=== PATIENT | male | born 1950 | race Caucasian/White ===

== ENCOUNTER → 2016-03-21 | Outpatient (CLI) | payer OTHER ==
[~2016-03-21] MED LIST: ALBU8.5H3 INH; ASPI-664 PO; BENA20TA48 PO; CALC-84 PO; DOCU-159 PO; FURO40TA4 PO; GABA300C PO; HC20CR25 TOP; HYDR-3498 PO; LANT3I SC; LORA10TA3 PO; METF500T PO; METO50TA16 PO; NIT4 SL; NOVO3I SC; OMEG1CAP55 PO; OMEP20CA16 PO; POTA20TA8 PO
--- NOTE | 2016-03-21 15:47 | RADRPT ---
PROCEDURE: Video-fluoroscopy swallowing study. CLINICAL INDICATION: Dysphagia. TECHNIQUE: Fluoroscopic guided video swallowing study was done in conjunction with the speech ther apist. The study was confined to the oral, pharyngeal, and cervical phases of the swallowing mechani sm. 2.4 minutes of fluoroscopy time was used. COMPARISON: No prior study is available for comparison. FINDINGS: There is no evidence of aspiration during the exam. IMPRESSION: 1. Normal study. No aspiration. 2. Please refer to the speech therapist's recommendations for future feedings. RPTAT: QQ .Steve Danielson MD, MD Date Time Electronically viewed and signed by .Steve Danielson MD, on 03/21/2016 15:47 .R/
== END | disposition home or self-care (01) ==
LOC: RAD 11:14
PROVIDERS: ATTEND Otolaryngology
DX: J39.2 Other diseases of pharynx (principal)
CPT/HCPCS: 74230; 92611

== ENCOUNTER 2016-12-11 04:14 | Emergency (ER) | payer OTHER ==
[~2016-12-11] VITALS: Ht 167.6 cm; Wt 115.9 kg
[~2016-12-11 04:14] MED LIST changes: +METO-319 PO; -METO50TA16 PO
[2016-12-11 04:25] VITALS: Ht 167.6 cm; Wt 115.9 kg
== END 2016-12-11 05:35 | disposition left against medical advice (07) ==
LOC: FTE 04:14
DX: Z53.21 Procedure and treatment not carried out due to patient leaving prior to being seen by health care provider (principal)

== ENCOUNTER → 2016-12-23 | Outpatient (CLI) | payer OTHER ==
[~2016-12-23] MED LIST changes: +NALOXONE (0.4 MG/ML) INJ ONE; +OPHTHALMIC IRRIG SOLUTION 120 ML ONE; +PHENYLephrine 10% 5 ML OPH ONE; +PROPARACAINE 0.5% 15 ML OPH ONE; +TROPICAMIDE 1% 3 ML OPH ONE
== END | disposition home or self-care (01) ==
LOC: RAD 12:44
PROVIDERS: ATTEND Ophthalmology
DX: H26.491 Other secondary cataract, right eye (principal)
CPT/HCPCS: 66821; Z7610; J2310

== ENCOUNTER 2017-07-08 09:04 | Emergency (ER) | END 2017-07-08 11:08 | disposition home or self-care (01) ==

== ENCOUNTER → 2017-07-08 | Outpatient (CLI) | END | disposition home or self-care (01) ==

== ENCOUNTER 2018-07-13 06:29 | Inpatient (IN) | payer OTHER ==
[~2018-07-13] VITALS: Ht 167.6 cm; Wt 109.0 kg
[~2018-07-13 06:29] MED LIST changes: -ALBU8.5H3 INH; +ALBU8.5H8 INH; -ASPI-664 PO; +ASPI-817 PO; +BENA20TA4 PO; -BENA20TA48 PO; +CALC-662 PO; -CALC-84 PO; -NALOXONE (0.4 MG/ML) INJ ONE; -NIT4 SL; +NITR0.4T39 SL; +OMEG-157 PO; -OMEG1CAP55 PO; -OPHTHALMIC IRRIG SOLUTION 120 ML ONE; -PHENYLephrine 10% 5 ML OPH ONE; -PROPARACAINE 0.5% 15 ML OPH ONE; -TROPICAMIDE 1% 3 ML OPH ONE
[2018-07-13] MEDS ORDERED: ASPIRIN 325 MG TAB PO STA (06:43)
[2018-07-13] MEDS ORDERED: ALBUTEROL 0.5% (NEB) 2.5 MG/0.5 ML AMP INH STA (06:43)
[2018-07-13] MEDS ORDERED: IPRATROPIUM (NEB) 0.5 MG/2.5 ML AMP INH STA (06:43)
--- NOTE | 2018-07-13 07:49 | ERD ---
ER Documentation Chief Complaint Chief Complaint sob and chest pain yesterday HPI This is 67-year-old male with a past medical history of coronary artery disease hypertension, CHF, insulin-dependent diabetes mellitus. The patient is on home oxygen. He states he utilizes roughly 2 L 24 hours a day. Over the past 24 hours the patient has had difficulty breathing with shortness of breath. He states his shortness of breath is at rest. He also developed chest pressure. He states the chest pressure lasted for roughly 1 hour. He took nitroglycerin and the chest pain completely resolved. This occurred yesterday roughly 12 tammy rs prior to arrival. When he awoke this morning the chest pain returned. He took another nitroglycerin and the chest pain completely resolved. The patient lives alone and a neighbor came over to check on him and phone 911 as the patient looked as though he was having a difficult time breathing. He denies any recent travel. He denies any swelling of his lower extremities. States his been compliant with all of his medications. ROS All systems reviewed and are negative except as per history of present illness. Medications Home Meds Active Scripts [place]-3/Dha/Epa/Fish Oil (FISH OIL EC 1,000 MG SOFTGEL) 1 Each Capsule.dr, 1000 MG PO BID for 30 Days Prov:PARDO,MIGUEL V. DRAMATIC DIRECTOR 11/19/15 Metformin Hcl (Glucophage) 500 Mg Tablet, 500 MG PO AC BREAKFAST DINNER for 30 Days, TAB Prov:PARDO,MIGUEL V. DRAMATIC DIRECTOR 11/19/15 Furosemide* (Furosemide*) 40 Mg Tablet, 40 MG PO DAILY@06 for 30 Days, TAB Prov:PARDO,MIGUEL V. DRAMATIC DIRECTOR 11/19/15 Insulin Aspart* (Novolog Insulin Pen*) 100 Unit/Ml Soln, 34 UNIT SC WITH MEALS for 30 Days Prov:PARDO,MIGUEL V. DRAMATIC DIRECTOR 11/19/15 Insulin Glargine* (Lantus*) 100 Unit/Ml Soln, 55 UNIT SC Q12 for 30 Days Prov:PARDO,MIGUEL V. DRAMATIC DIRECTOR 11/19/15 Metoprolol Succinate* (Toprol XL*) 50 Mg Tab.er.24h, 50 MG PO BID for 30 Days Prov:PARDO,MIGUEL V. DRAMATIC DIRECTOR 11/19/15 Aspirin* (Aspirin* EC) 81 Mg Tablet.dr, 81 MG PO DAILY for 30 Days, TAB Prov:PARDO,MIGUEL V. DRAMATIC DIRECTOR 11/19/15 Reported Medications Albuterol Sulfate* (Proair HFA*) 8.5 Gm Hfa.aer.ad, 2 PUFF INH Q4-6 HOURS PRN for WHEEZING AND SOB, INH 11/16/14 Potassium Chloride* (Klor-Con*) 10 Meq Tabsr, 10 MEQ PO DAILY W/ FOOD, TAB.SA 11/16/14 Omeprazole* (Omeprazole*) 20 Mg Capsule.dr, 20 MG PO DAILY, CAP 11/16/14 Hydrocodone Bit-Acetaminophen* ([place]*) 5-325 Mg Tab, 1 TAB PO Q6 PRN for PAIN, TAB 11/16/14 Nitroglycerin* (Nitrostat*) 0.4 Mg Tab.subl, 0.4 MG SL Q5MIN PRN for CHEST PAIN, BOTTLE 11/16/14 Gabapentin* (Neurontin*) 300 Mg Capsule, 300 MG PO TID, CAP 11/16/14 Loratadine* (Loratadine*) 10 Mg Tablet, 10 MG PO DAILY, TAB 11/16/14 Hydrocortisone* Topical (Hydrocortisone* Topical) 2.5%-20 Gm Cream..g., 1 APPLIC TOP BID, TUB 11/16/14 Docusate Sodium* (Docusate Sodium*) 100 Mg Capsule, 200 MG PO QHS PRN for CONSTIPATION, CAP 11/16/14 Calcium Carbonate-Vitamin D3 (Calcium 500 + D Tablet) 1 Each Tablet, 1 TAB PO BID, TAB 11/16/14 Benazepril Hcl* (Benazepril Hcl*) 20 Mg Tablet, 20 MG PO DAILY, TAB 11/16/14 Allergies Allergies: Coded Allergies: peanut (Verified Allergy, Intermediate, TIGHTNESS IN THROAT, SOB, 07/08/17) PMhx/Soc History of Surgery: Yes (RIGHT KNEE REPLACEMENT, EYE SX, ) Anesthesia Reaction: No Hx Neurological Disorder: Yes Hx Respiratory Disorders: Yes (COPD) Hx Cardiac Disorders: Yes (CHF, HTN, AFIB VA WITH STENT PLACEMENT ) Hx Psychiatric Problems: No Hx Miscellaneous Medical Probl: Yes (Diabetic neuropathy, SLEEP APNEA) Hx Alcohol Use: Yes Hx Substance Use: No Hx Tobacco Use: No Smoking Status: Never smoker Physical Exam Vitals Vital Signs Date Temp Pulse Resp B/P (MAP) Pulse Ox O2 O2 Flow FiO2 Time Delivery Rate 07/13/18 96 22 160/83 100 Nasal 4.0 08:13 (108) Cannula 07/13/18 86 22 96 Nasal 2.0 07:27 Cannula 07/13/18 Nasal 4 07:05 Cannula 07/13/18 Nasal 4.0 06:46 Cannula 07/13/18 98.0 95 22 181/95 100 06:35 (123) Physical Exam Constitutional:Well-developed. Well-nourished. HEENT:Normocephalic. Atraumatic.Pupils were equal round reactive to light. Moist mucous membranes.No tonsillar exudates. Neck: No nuchal rigidity. No lymphadenopathy. No posterior cervical spine tenderness or step-offs. Respiratory: Not using accessory muscles of respiration.Decreased breath sounds bilaterally. Patient unable to speak more than 2 words at a time before becoming short of breath Cardiovascular: Regular rate regular rhythm.No murmurs. No rubs were appreciated.S1, S2 normal. Distal pulses are palpable 2+ bilaterally. GI: Abdomen was obese so exam is limited due to body habitus. Nontender. Non Distended. No pulsatile abdominal masses or bruits. No rebound. No guarding. Bowel sounds were present and normal. Muscle skeletal: Full range of motion of both the upper and lower extremities bilaterally.Normal muscle tone.No assymetrical calf tenderness or swelling. Skin: No petechia, no purpura. No lesions on the palms or the soles of the feet. No maculopapular rash. NEURO: Patient was alert, awake, orientated x3.No facial droop. Gait not observed as patient was in respiratory distress and stated he could not am bulate. No focal neurological deficits. Result Diagram: 07/13/1870607/13/18706 Results 24 hrs Laboratory Tests Test 07/13/18 07:07 07/13/18 07:45 White Blood Count 4.9 10^3/ul Red Blood Count 5.10 10^6/ul Hemoglobin 13.8 g/dl Hematocrit 42.1 % Mean Corpuscular Volume 82.5 fl Mean Corpuscular Hemoglobin 27.1 pg Mean Corpuscular Hemoglobin Concent 32.8 g/dl Red Cell Distribution Width 14.3 % Platelet Count 125 10^3/UL Mean Platelet Volume 9.4 fl Immature Granulocytes % 0.200 % Neutrophils % 63.5 % Lymphocytes % 16.8 % Monocytes % 7.0 % Eosinophils % 11.9 % Basophils % 0.6 % Nucleated Red Blood Cells % 0.0 /100WBC Immature Granulocytes # 0.010 10^3/ul Neutrophils # 3.1 10^3/ul Lymphocytes # 0.8 10^3/ul Monocytes # 0.3 10^3/ul Eosinophils # 0.6 10^3/ul Basophils # 0.0 10^3/ul Nucleated Red Blood Cells # 0.0 10^3/ul Sodium Level 134 mmol/L Potassium Level 5.4 mmol/L Chloride Level 100 mmol/L Carbon Dioxide Level 28 mmol/L Anion Gap 6 Blood Urea Nitrogen 16 mg/dl Creatinine 0.75 mg/dl Est Glomerular Filtrat Rate mL/min > 60 mL/min Glucose Level 388 mg/dl Calcium Level 8.8 mg/dl Total Bilirubin 0.7 mg/dl Direct Bilirubin 0.00 mg/dl Indirect Bilirubin 0.7 mg/dl Aspartate Amino Transf (AST/SGOT) 44 IU/L Alanine Aminotransferase (ALT/SGPT) 26 IU/L Alkaline Phosphatase 86 IU/L Creatine Kinase 79 IU/L Creatine Kinase Index 2.6 Creatinine Kinase MB (Mass) 2.03 ng/ml Troponin I 0.023 ng/ml B-Type Natriuretic Peptide 266 PG/ML Total Protein 7.0 g/dl Albumin 3.5 g/dl Globulin 3.50 g/dl Albumin/Globulin Ratio 1.00 Prothrombin Time 12.3 Sec Prothrombin Time Ratio 1.0 INR International Normalized Ratio 0.90 Activated Partial Thromboplast Time 25.8 Sec Current Medications Medications Dose Sig/Steve Start Time Status Last (Trade) Ordered Route PRN Stop Time Admin Dose Reason Admin Aspirin 325 mg ONCE STAT 07/13/18 DC 07/13/18 (Aspirin) PO 06:43 07:20 07/13/18 06:53 Albuterol 10 mg ONCE STAT 07/13/18 DC 07/13/18 (Proventil INH 06:43 07:27 0.5% (Neb)) 07/13/18 06:53 Ipratropium 1 mg ONCE STAT 07/13/18 DC 07/13/18 [place] INH 06:43 07:27 (Atrovent 07/13/18 06:53 0.02% (Neb)) Furosemide 80 mg ONCE ONCE 07/13/18 DC 07/13/18 (Lasix) IV 08:00 08:13 07/13/18 08:01 Ondansetron 4 mg ER BRIDGE 07/13/18 HCl (Zofran PRN IV 08:00 Inj) NAUSEA/VOMITI 07/14/18 07:59 NG 650 mg ER BRIDGE 07/13/18 Acetaminophen PRN PO 08:00 (Tylenol .MILD PAIN 07/14/18 07:59 Tab) 1-3 OR TEMP Procedures/MDM The patient presented to the emergency department with shortness of breath. My differential diagnosis included but was not limited to upper airway obstruction, CHF, pulmonary embolism, cardiac ischemia, pneumonia, pneumothorax, anemia, drug overdose, pulmonary edema, COPD or asthma. The patient was admitted placed on a information resource consultant continuous pulse oximetry and IV access was established by nursing staff. The patient received 125 mg of Solu-Medrol as the patient stated he also has a history of COPD and started on continuous nebulizer treatment of albuterol and Atrovent. Patient also complained of chest pain. However when the patient arrived his chest pain had resolved as he had Avel taken nitroglycerin. He was given aspirin in the emergency department. I obtained an EKG and there was no evidence of ST segment elevation. 12 Lead EKG tracing ordered and reviewed by myself showed: Normal sinus rhythm of 93 bpm and no arrhythmia. OR interval normal. QRS duration normal. No ST segment elevation No ST segment depression. No changes consistent with acute ischemia. I obtained a 1 view chest radiograph that was reviewed by myself the patient had cardiomegaly. There is no infiltrates. There is no evidence of pulmonary vascular congestion. However, the patient was hypertensive and does have congestive heart failure. He received 80 mg of Lasix intravenously. The patient's arterial blood gas showed CO2 narcosis the patient's PCO2 was 55.3 mmHg oxygen concentration was 181.3 and pH was 7.3. Repeat EKG was obtained as the patient was initially complaining of chest pain. The second EKG was taken at 8:15 AM. 12 Lead EKG tracing ordered and reviewed by myself showed: Normal sinus rhythm of 96 bpm and no arrhythmia. OR interval normal. QRS duration normal. No ST segment elevation No ST segment depression. No changes consistent with acute ischemia. Critical Care: Time: 80 minutes Treatments/Evaluations: Close monitoring and treatment of unstable vital signs, cardiorespiratory, and neurologic status, while maintaining tight balance of fluid, respiratory, and cardiac interventions. Time does not include performing any of the above billable procedures. Departure Diagnosis: Primary Impression: CHF exacerbation Heart failure type: unspecified Qualified Codes: I50.9 - Heart failure, unspecified Additional Impressions: COPD exacerbation Chest pain Chest pain type: unspecified Qualified Codes: R07.9 - Chest pain, unspecified Condition: Serious JOHN JARAMILLO MD July 13, 2018 07:39
[2018-07-13] MEDS ORDERED: ACETAMINOPHEN 325 MG TAB PO PRN ×2 (08:00→14:30)
[2018-07-13] MEDS ORDERED: ONDANSETRON 4 MG INJ IV PRN ×2 (08:00→14:30)
[2018-07-13] MEDS ORDERED: FUROSEMIDE 40 MG INJ IV ONE (08:00)
[2018-07-13] MEDS ORDERED: ZOLP10TA5 PO (08:28)
[2018-07-13] MEDS ORDERED: ALBU18HF INHALATION (08:29)
[2018-07-13] MEDS ORDERED: AMLO5TAB4 PO (08:29)
[2018-07-13] MEDS ORDERED: LYRI100 PO (08:29)
[2018-07-13] MEDS ORDERED: OMEP40CA6 PO (08:30)
[2018-07-13] MEDS ORDERED: FLUT1BLS INHALATION (08:30)
[2018-07-13] MEDS ORDERED: RSV10T PO (08:30)
[2018-07-13] MEDS ORDERED: OMEG1CAP2 PO (08:30)
[2018-07-13] MEDS ORDERED: DAPS25TA PO (08:31)
[2018-07-13] MEDS ORDERED: CETI10TA19 PO (08:32)
[2018-07-13] MEDS ORDERED: METF100010 PO (08:33)
[2018-07-13] MEDS ORDERED: CARV6.2579 PO (08:33)
[2018-07-13] MEDS ORDERED: NITR0.4T39 SL (08:33)
[2018-07-13] MEDS ORDERED: OLME20TA20 PO (08:34)
[2018-07-13] MEDS ORDERED: EZET10TA31 PO (08:34)
[2018-07-13] MEDS ORDERED: FURO40SO PO (08:35)
[2018-07-13] MEDS ORDERED: INSU100I33 SC (08:40)
[2018-07-13] MEDS ORDERED: NOVO3I SC (08:41)
[2018-07-13] MEDS ORDERED: EXEN2PEN SQ (08:42)
[2018-07-13] MEDS ORDERED: ERGO500013 PO (08:43)
[2018-07-13 13:07] VITALS: PULSE 78
--- NOTE | 2018-07-13 14:08 | HP ---
Date/Time of Note Date/Time of Note DATE: 07/13/18 TIME: 14:01 Assessment/Plan VTE Prophylaxis Pharmacological prophylaxis: LMWH Lines/Catheters IV Catheter Type (from [facility]): [place] [facility] Assessment/Plan Hospital Course 67-year-old male with known COPD on home oxygen, known coronary artery disease status post LA and known cardiomyopathy who presents with worsening shortness of breath and chest pressure admitted and managed as follows: 1. Chest pain rule out ACS 2. Known coronary artery disease status post PCI 3. CHF exacerbation, acute on chronic, systolic 4. Acute on chronic renal respiratory insufficiency 5. Known COPD on home oxygen 6. Morbid obesity 7. Dyslipidemia with hypertriglyceridemia 8. Diabetes mellitus with poor home control PLAN: -Admit to telemetry, complete ACS rule out, commence gentle diuresis, cardiology consultation with Dr. Up. -Resume home hypoglycemics with insulin. Patient on very high dosing. Will resume on the dosing he was on on his previous hospitalization and uptitrate as indicated. Also obtain hemoglobin A1c -Continue all other home medications -Provide supportive care and supplemental oxygen as needed -Further interventions per clinical course Result Diagram: 07/13/18 0707 07/13/18 0707 Results 24hrs Laboratory Tests Test 07/13/18 06:58 07/13/18 07:07 07/13/18 07:37 07/13/18 07:45 Urine Color STRAW Urine Clarity CLEAR Urine pH 7.0 Urine Specific 1.010 [place] Urine Ketones NEGATIVE Urine Nitrite NEGATIVE Urine Bilirubin NEGATIVE Urine NEGATIVE Urobilinogen Urine Leukocyte NEGATIVE Esterase Urine Microscopic 1 RBC Urine Microscopic 0 WBC Urine Hemoglobin 1+ H Urine Glucose 3+ H Urine Total 2+ H Protein White Blood Count 4.9 Red Blood Count 5.10 Hemoglobin 13.8 L Hematocrit 42.1 Mean Corpuscular 82.5 Volume Mean Corpuscular 27.1 L Hemoglobin Mean Corpuscular 32.8 Hemoglobin Concen t Red Cell 14.3 Distribution Width Platelet Count 125 L Mean Platelet 9.4 # Volume Immature 0.200 Granulocytes % Neutrophils % 63.5 Lymphocytes % 16.8 Monocytes % 7.0 Eosinophils % 11.9 H Basophils % 0.6 Nucleated Red 0.0 Blood Cells % Immature 0.010 Granulocytes # Neutrophils # 3.1 Lymphocytes # 0.8 Monocytes # 0.3 Eosinophils # 0.6 H Basophils # 0.0 Nucleated Red 0.0 Blood Cells # Sodium Level 134 L Potassium Level 5.4 H Chloride Level 100 Carbon Dioxide 28 Level Anion Gap 6 Blood Urea 16 Nitrogen Creatinine 0.75 Est Glomerular > 60 Filtrat Rate mL/min Glucose Level 388 H Calcium Level 8.8 Total Bilirubin 0.7 Direct Bilirubin 0.00 Indirect 0.7 Bilirubin Aspartate Amino 44 Transf (AST/SGOT) Alanine 26 Aminotransferase (ALT/SGPT) Alkaline 86 Phosphatase Creatine Kinase 79 Creatine Kinase 2.6 Index Creatinine Kinase 2.03 MB (Mass) Troponin I 0.023 B-Type 266 H Natriuretic Peptide Total Protein 7.0 Albumin 3.5 Globulin 3.50 H Albumin/Globulin 1.00 Ratio Blood Gas Blood arterial Specimen Source Arterial Blood 07/13/2018 8:05:0 Date Drawn 0 AM Arterial Blood pH 7.332 L (Temp corrected) Arterial Blood 55.3 H pCO2 (Temp correct) Arterial Blood 181.3 H pO2 (Temp corrected) Arterial Blood 28.6 H HCO3 Arterial Blood 1.5 Base Excess Arterial Blood 99.0 H Oxygen Saturation Andrei Test ACCEPTAB Arterial Blood Right Radial Gas Puncture Site Arterial 1.1 Blood Carboxyhemo globin Arterial Blood 0.3 Methemoglobin Blood Gas A-a O2 134.8 H Differential Oxyhemoglobin 97.6 Percent Blood Gas 37.0 Temperature Blood Gas TX MASK 8 Modality FiO2 53.0 Blood Gas RT Notified Whom Blood Gas 07/13/2018 8:15:3 Notified Time 9 AM Prothrombin Time 12.3 Prothrombin Time 1.0 Ratio INR International 0.90 Normalized Ratio Activated 25.8 Partial Thrombopl ast Time Test 07/13/18 10:20 07/13/18 11:41 Bedside Glucose 359 H Creatine Kinase 64 Creatine Kinase 3.1 Index Creatinine Kinase 1.99 MB (Mass) Troponin I 0.022 HPI/ROS Admit Date/Time Admit Date/Time July 13, 2018 at 07:59 Hx of Present Illness This is 67-year-old male with a past medical history of coronary artery disease hypertension, CHF, insulin-dependent diabetes mellitus. The patient is on home oxygen. He states he utilizes roughly 2 L 24 hours a day. Over the past 24 hours the patient has had difficulty breathing with shortness of breath. He states his shortness of breath is at rest. He also developed chest pressure. He states the chest pressure lasted for roughly 1 hour. He took nitroglycerin and the chest pain completely resolved. This occurred yesterday roughly 12 hours prior to arrival. When he awoke this morning the chest pain returned. He took another nitroglycerin and the chest pain completely resolved. The patient lives alone and a neighbor came over to check on him and phone 911 as the patient looked as though he was having a difficult time breathing. He denies any recent travel. He denies any swelling of his lower extremities. States his been compliant with all of his medications. ROS 12 point review if systems was done and pertinent findings are as noted. PMH/Family/Social Past Medical History coronary artery disease hypertension CHF insulin-dependent diabetes mellitus. chronic resp failure on home o2 CAD s/p PCI chronic CM ef 30% COPD morbid obesity dyslipidemia Medications Current Medications Ondansetron HCl (Zofran Inj) 4 mg ER BRIDGE PRN IV NAUSEA/VOMITING; Start 07/13/18 at 08:00; Stop 07/14/18 at 07:59 Acetaminophen (Tylenol Tab) 650 mg ER BRIDGE PRN PO .MILD PAIN 1-3 OR TEMP; Start 07/13/18 at 08:00; Stop 07/14/18 at 07:59 Coded Allergies: peanut (Verified Allergy, Intermediate, TIGHTNESS IN THROAT, SOB, 07/13/18) Past Surgical History R knee replacement eye sx . Family History Significant Family History: no pertinent family hx Social History Alcohol Use: none Smoking Status: Never smoker Drug Use: none Exam/Review of Systems Vital Signs Vitals Vital Signs Date Temp Pulse Resp B/P (MAP) Pulse Ox O2 O2 Flow FiO2 Time Delivery Rate 07/13/18 78 13:07 07/13/18 22 136/74 98 Nasal 2.0 12:38 (94) Cannula 07/13/18 98.0 06:35 Exam Exam General: A&O x3, answering questions appropriately,obese, anxious HEENT: NC/ AT. PERRL. EOM intact Neck: supple CVS: S1, S2, RRR. no murmurs. no pain on chest wall palpation Lungs: diminished ++ Abd: soft, nontender, +BS Ext: moving all extremities, francisco javier le edema skin: no rashes CB MILLS July 13, 2018 14:08
[2018-07-13] MEDS ORDERED: LORAZEPAM 0.5 MG TAB PO PRN (14:30)
[2018-07-13] MEDS ORDERED: DEXTROSE 50% 50 ML SYRINGE IV PRN ×2 (14:30)
[2018-07-13] MEDS ORDERED: GLUCAGON 1 MG INJ IM PRN (14:30)
[2018-07-13] MEDS ORDERED: ZOLPIDEM 5 MG TAB PO PRN (14:30)
[2018-07-13] MEDS ORDERED: GLUCOSE GEL 15 GRAM TUBE PO PRN ×2 (14:30)
[2018-07-13] MEDS: DOCUSATE SODIUM 100 MG CAP PO SCH ×2 (14:30→21:15)
[2018-07-13] MEDS ORDERED: GLUCOSE GEL 15 GRAM TUBE BUCCAL PRN (14:30)
[2018-07-13] MEDS: INSULIN ASPART [NOVOLOG] 3 ML PEN SC SCH ×4 (14:43→21:21)
--- NOTE | 2018-07-13 14:52 | CONS ---
DATE OF ADMISSION: 07/13/2018 DATE OF CONSULTATION: 07/13/2018 TYPE OF CONSULTATION: Cardiology. REASON FOR CONSULTATION: Congestive heart failure exacerbation and chest pain, assess for acute coronary syndrome. REQUESTING PHYSICIAN: Cb Mills MD, from the hospitalist service. HISTORY OF PRESENT ILLNESS: Mr. Torres is a 67-year-old male with history of hypertension, dyslipidemia, coronary artery disease, status post PCI alone more than 30 years ago per patient at [facility], cardiomyopathy with decreased left ventricular ejection fraction, last EF only approximately 35% by stress test with no ischemia done in 2016 and echo 50% during that same year, prior tobacco intake, quit times greater than 20 years, COPD, diabetes mellitus, who states he initially woke up and noticed numbness in the right side of his face and drooling from his mouth and called paramedics. Upon arrival of paramedics, he states he is more concerned about having shortness of breath and thought that he was in suffering from more shortness of breath and he additionally told them he had some intermittent chest pain and subsequently was brought here to the emergency department. Upon arrival, temperature of 98, blood pressure 181/95, pulse 95, respiratory rate 22, satting 100%. The patient's labs showed white blood cell count 4.9, hemoglobin 13.8, platelet count of 125, sodium 134, potassium 5.4, creatinine 0.7, BUN 16, AST 44, ALT 26, BNP of 266, troponin negative, albumin 3.5, glucose of 388, INR of 9.9, UA negative. ABG with pH of 7.332, a PaO2 of 181 for O2 sat 99% and pCO2 of 55. The patient underwent a chest x-ray revealing mild central venous congestion with tiny right pleural effusion. The patient's electrocardiogram revealed sinus rhythm at rate of 93 with normal axis, normal intervals, nonspecific ST-T abnormalities, The patient thus far has been treated with Lasix 80 mg IV x1, aspirin 325 mg, bronchodilators and now is admitted to the floor. The patient states that since he is in the floor, he has been having more palpitations and chest pain and denies true chest pain. PAST MEDICAL HISTORY: As above in HPI. MEDICATIONS CURRENTLY IN HOSPITAL: 1. Aspirin 81 mg daily. 2. Norvasc 5 mg daily. 3. Breo Ellipta daily. 4. Pepcid 20 mg q.12. 5. Carvedilol 6.25 mg p.o. b.i.d. 6. Dapsone 100 mg b.i.d. 7. Zetia 10 mg at bedtime. 8. Lantus. 9. Lyrica. 10. Insulin sliding scale. 11. Tylenol p.r.n. 12. [place] p.r.n. 13. Ambien p.r.n. 14. Zofran p.r.n. ALLERGIES: PEANUTS. SOCIAL HISTORY: Remote tobacco. No EtOH or illicit drug use. FAMILY HISTORY: No history of sudden cardiac or early CAD. REVIEW OF SYSTEMS: As above in HPI. CONSTITUTIONAL: No fevers, chills. PULMONARY: Shortness of breath. CARDIOVASCULAR: No current chest pain, palpitations. History of cardiomyopathy with decreased left ventricular ejection fraction. GASTROINTESTINAL: No vomiting or nausea. MUSCULOSKELETAL: Degenerative joint disease. ENDOCRINE: Diabetes mellitus. PSYCHIATRIC: No documented psych history. PHYSICAL EXAMINATION: VITAL SIGNS: Temperature of 98, blood pressure most recently 136/74, pulse 80, respiratory rate 22, satting 98% on 2 liters. GENERAL: The patient is alert, awake, complaining of shortness of breath. NECK: JVP is approximately 9 cm water. CHEST: Decreased breath sounds at bases bilaterally and mild expiratory wheezing. HEART: Regular rate and rhythm. Normal S1, increased S2, I/ systolic murmur, mild lateral displacement of PMI. ABDOMEN: Positive bowel sounds, soft. EXTREMITIES: No significant pitting edema. Difficult to palpate distal pulses bilateral posterior tibial, dorsalis pedis. LABORATORY DATA: As above in HPI. No further labs for my review at this time. IMAGING STUDIES: As above in HPI. No further imaging studies for my review at this time. ELECTROCARDIOGRAM: As above in HPI. No further electrocardiograms for my review at this time. IMPRESSION: 1. Congestive heart failure exacerbation by previous stress and echo be systolic and acute on chronic. 2. Hypertension. 3. Dyslipidemia. 4. Abnormal electrocardiogram, assess for acute coronary syndrome. 5. Remote tobacco. 6. Chronic obstructive pulmonary disease. 7. Diabetes mellitus. 8. Hyperkalemia. 9. Mildly increased BNP. RECOMMENDATIONS: 1. At this time, we would maintain the patient on telemetry monitoring to follow rhythm and rate control closely. 2. We would complete the patient's rule out of myocardial infarction to ensure the patient's possible chest pain which was described and palpitations are not due to acute coronary syndrome, acute myocardial infarction but additionally to make sure the patient's EKG abnormalities are chronic in nature and not due to recent acute coronary syndrome. 3. We would place the patient on Lasix diuresis as you have done and continue the patient's aspirin at this time. 4. Additionally continue the patient's beta janice and we will change to beta 1 selective beta janice does not provoked any bronchospasm leading to worsening shortness of breath as would happen with carvedilol. 5. We will continue the patient's Norvasc for now and given the patient's decreased EF by history, we will reassess with 2D echo and we would place the patient on ESTUARDO inhibitor afterload reduction. Additionally, we will continue bronchodilator therapy. Thank you for allowing me to take part in the care of this patient. I will continue to follow him along very closely with you with further recommendations to be made as the patient progresses through his inpatient hospital clinical course. Dictated By: HERRERA FOWLER/ELMER Conf#: [id number] DID#: [id number] CC: CB MILLS MD;*EndCC* MTDD
[2018-07-13 15:37] VITALS: BP 132/62; PULSE 84; RESP 20
[2018-07-13 15:56] VITALS: Ht 167.6 cm; Wt 109.0 kg
[2018-07-13 16:00] VITALS: PULSE 86
[2018-07-13] MEDS: PREGABALIN 100 MG CAP PO SCH ×2 (16:10→21:36)
[2018-07-13] MEDS: ACCU-CHEK XX SCH ×2 (17:25→21:00)
[2018-07-13] MEDS: FUROSEMIDE 40 MG INJ IV SCH (18:00)
[2018-07-13 19:29] VITALS: BP 130/60; PULSE 73; RESP 20
[2018-07-13 20:00] VITALS: PULSE 79
[2018-07-13] MEDS ORDERED: INSULIN GLARGINE [LANtus] 3 ML PEN SC SCH (21:00)
[2018-07-13] MEDS: DAPSONE 25 MG TABLET PO SCH (21:15)
[2018-07-13] MEDS: ATORVASTATIN 40 MG TAB PO SCH (21:16)
[2018-07-13] MEDS: EZETIMIBE 10 MG TAB PO SCH (21:16)
[2018-07-13] MEDS: FAMOTIDINE 20 MG TAB PO SCH (21:17)
[2018-07-13] MEDS: FISH OIL 1,000 MG CAP PO SCH (21:17)
[2018-07-13] MEDS: INSULIN GLARGINE [LANTus] (100 UNITS/ML) SYG SC SCH (21:21)
[2018-07-13 23:45] VITALS: BP 139/77; PULSE 70; RESP 22
[2018-07-14] VITALS (10 sets, daily range): BP systolic 98–151; BP diastolic 55–77; PULSE 65–73; RESP 16–20
[2018-07-14] MEDS: ACCU-CHEK XX SCH ×4 (02:00→21:00)
[2018-07-14] MEDS: HYDROCODONE/APAP (5/325) TAB PO PRN ×3 (03:40→20:45)
[2018-07-14] MEDS: PANTOPRAZOLE (EC) 40 MG TAB PO SCH (06:19)
[2018-07-14] MEDS: FUROSEMIDE 40 MG INJ IV SCH (06:20)
[2018-07-14] MEDS: FLUTICASONE/VILANTEROL 200-25 INH DEVICE INH SCH (08:07)
[2018-07-14] MEDS: DOCUSATE SODIUM 100 MG CAP PO SCH ×2 (08:07→20:41)
[2018-07-14] MEDS: FISH OIL 1,000 MG CAP PO SCH ×2 (08:07→20:42)
[2018-07-14] MEDS: ASPIRIN 81 MG TAB PO SCH (08:08)
[2018-07-14] MEDS: FAMOTIDINE 20 MG TAB PO SCH ×2 (08:08→20:43)
[2018-07-14] MEDS: PREGABALIN 100 MG CAP PO SCH ×3 (08:08→20:42)
[2018-07-14] MEDS: DAPSONE 25 MG TABLET PO SCH ×2 (08:09→20:43)
[2018-07-14] MEDS: AMLODIPINE 5 MG TAB PO SCH (08:09)
[2018-07-14] MEDS: LOSARTAN 50 MG TAB PO SCH (08:10)
[2018-07-14] MEDS: BENAZEPRIL 10 MG TAB PO SCH (08:10)
[2018-07-14] MEDS: INSULIN ASPART [NOVOLOG] 3 ML PEN SC SCH ×7 (08:19→21:00)
[2018-07-14] MEDS: ENOXAPARIN 40 MG/0.4 ML SYG SC SCH (08:24)
--- NOTE | 2018-07-14 09:38 | CONS ---
Consult Date/Type/Reason Admit Date/Time July 13, 2018 at 07:59 Initial Consult Date Date/Time of Note DATE: 07/14/18 TIME: 09:36 Subjective No acute events - pt feels better toady - denies CP now. ROS: No fever, no chills, no nausea, no vomiting, no diarrhea/constipation No recent weight changes No chest pain, no PND, no orthopnea No dizziness, blurred vision No thirst, no heat or cold intolerance Objective Vitals Vital Signs Date Temp Pulse Resp B/P (MAP) Pulse Ox O2 O2 Flow FiO2 Time Delivery Rate 07/14/18 67 08:01 07/14/18 97.9 16 133/77 97 07:45 (95) 07/14/18 Room Air 04:41 07/13/18 2.0 12:38 Intake and Output 07/13/18 07/13/18 07/14/18 1515:00 23:00 07:00 IntakeIntake Total 720 ml 650 ml OutputOutput Total 1000 ml BalanceBalance 720 ml -350 ml Exam General: WN/WD/NAD, AOx 3 HEENT: Unicetric/atraumatic/EOMI (follows commands) NECK: JVD elevated, no thyromegaly Lymph: no lymphadenopathy HEART: regular with no S3, II/ systolic murmur at apex LUNGS: Coarse sounds ABD: soft, NT, ND, +BS : Intact Neuro: non focal SKIN: chronic changes EXT: trace edema Results/Medications Result Diagram: 07/14/18 0607 07/14/18 0607 Results 24 hrs Laboratory Tests Test 07/13/18 10:20 07/13/18 11:41 07/13/18 14:23 07/13/18 14:32 Bedside Glucose 359 H 318 H Creatine Kinase 64 Creatine Kinase 3.1 Index Creatinine Kinase MB 1.99 (Mass) Troponin I 0.022 Sodium Level 134 L Potassium Level 4.5 Chloride Level 95 L Carbon Dioxide Level 31 Anion Gap 8 Blood Urea Nitrogen 16 Creatinine 0.83 Est Glomerular > 60 Filtrat Rate mL/min Glucose Level 366 H Calcium Level 9.2 Test 07/13/18 17:15 07/13/18 17:59 07/13/18 21:14 07/14/18 03:32 Bedside Glucose 347 H 253 H 291 H Creatine Kinase 64 Creatine Kinase 3.3 Index Creatinine Kinase MB 2.09 (Mass) Troponin I 0.022 Test 07/14/18 06:07 07/14/18 07:38 White Blood Count 6.6 # Red Blood Count 5.11 Hemoglobin 13.8 L Hematocrit 41.6 L Mean Corpuscular 81.4 L Volume Mean Corpuscular 27.0 L Hemoglobin Mean Corpuscular 33.2 Hemoglobin Concent Red Cell 14.1 Distribution Width Platelet Count 163 # Mean Platelet Volume 9.5 Immature 0.300 Granulocytes % Neutrophils % 56.3 Lymphocytes % 19.5 Monocytes % 9.1 Eosinophils % 14.0 H Basophils % 0.8 Nucleated Red Blood 0.0 Cells % Immature 0.020 Granulocytes # Neutrophils # 3.7 Lymphocytes # 1.3 Monocytes # 0.6 Eosinophils # 0.9 H Basophils # 0.1 Nucleated Red Blood 0.0 Cells # Sodium Level 131 L Potassium Level 4.2 Chloride Level 94 L Carbon Dioxide Level 33 H Anion Gap 4 L Blood Urea Nitrogen 23 H Creatinine 1.08 Est Glomerular > 60 Filtrat Rate mL/min Glucose Level 315 H Hemoglobin A1c 11.0 H Calcium Level 8.7 Phosphorus Level 4.9 Magnesium Level 1.7 Iron Level 89 Total Iron Binding 314 Capacity Percent Iron 28 Saturation Triglycerides Level 162 H Cholesterol Level 137 LDL Cholesterol, 69 Calculated HDL Cholesterol 36 Cholesterol/HDL 3.8 Ratio Bedside Glucose 303 H Home Meds Reported Medications Ergocalciferol (Vitamin D2) (VITAMIN D2) 50,000 Unit Capsule, 37759 UNIT PO ONCE A WEEK, CAP PT NOT SURE WHICH DAY 07/13/18 Exenatide Microspheres (Bydureon Pen) 2 Mg/0.65 Ml Pen.injctr, 2 MG SQ Q7D, EACH PT NOT SURE WHICH DAY 07/13/18 Insulin Aspart* (Novolog Insulin Pen*) 100 Unit/Ml Soln, 40 UNIT SC WITH MEALS, EA 07/13/18 Insulin Glargine,Hum.rec.anlog (Basaglar Kwikpen U-100) 100 Unit/1 Ml Insuln.pen, 60 UNIT SC QHS, EA 07/13/18 Furosemide* (Furosemide*) 40 Mg/5 Ml Solution, 40 MG PO DAILY, #150 ML 07/13/18 Ezetimibe* (Zetia*) 10 Mg Tablet, 10 MG PO HS, TAB 07/13/18 Olmesartan Medoxomil (Benicar) 20 Mg Tablet, 20 MG PO DAILY, #30 TAB 07/13/18 Metformin Hcl* (Metformin Hcl*) 1,000 Mg Tablet, 1000 MG PO WITH BREAKFAST DINNE, #60 TAB 07/13/18 Carvedilol* (Carvedilol*) 6.25 Mg Tablet, 6.25 MG PO BID, #60 TAB 07/13/18 Nitroglycerin* (Nitrostat*) 0.4 Mg Tab.subl, 0.4 MG SL Q5MIN PRN for CHEST PAIN, BOTTLE 07/13/18 Cetirizine Hcl* (Cetirizine Hcl*) 10 Mg Tablet, 10 MG PO DAILY, #30 TAB 07/13/18 Dapsone* (Dapsone*) 25 Mg Tablet, 25 MG PO BID, #60 TAB STOP IF BLOOD SUGAR IS OVER 200 07/13/18 Omeprazole* (Omeprazole*) 40 Mg Capsule.dr, 40 MG PO DAILY, #30 CAP 07/13/18 Fluticasone/Vilanterol (Breo Ellipta 200-25 Mcg INH) 1 Each Blst.w.dev, 1 PUFF INHALATION DAILY, #1 INHALER 07/13/18 [place]-3 Acid Ethyl Esters (Lovaza) 1 Gm Capsule, 2 GM PO BID, CAP 07/13/18 Rosuvastatin Calcium* (Crestor*) 10 Mg Tablet, 10 MG PO QHS, #30 TAB 07/13/18 Amlodipine Besylate* (Norvasc*) 5 Mg Tablet, 5 MG PO DAILY, TAB 07/13/18 Albuterol Sulfate* (Ventolin HFA*) 18 Gm Hfa.aer.ad, 2 PUFF INHALATION Q4H, #1 INHALER 07/13/18 Pregabalin* (Lyrica*) 100 Mg Capsule, 100 MG PO TID, CAP 07/13/18 Zolpidem Tartrate* (Zolpidem Tartrate*) 10 Mg Tablet, 10 MG PO QHS PRN for INSOMNIA, #30 TAB 07/13/18 Discontinued Reported Medications Albuterol Sulfate* (Proair HFA*) 8.5 Gm Hfa.aer.ad, 2 PUFF INH Q4-6 HOURS PRN for WHEEZING AND SOB, INH 11/16/14 Potassium Chloride* (Klor-Con*) 10 Meq Tabsr, 10 MEQ PO DAILY W/ FOOD, TAB.SA 11/16/14 Omeprazole* (Omeprazole*) 20 Mg Capsule.dr, 20 MG PO DAILY, CAP 11/16/14 Hydrocodone Bit-Acetaminophen* ([place]*) 5-325 Mg Tab, 1 TAB PO Q6 PRN for PAIN, TAB 11/16/14 Nitroglycerin* (Nitrostat*) 0.4 Mg Tab.subl, 0.4 MG SL Q5MIN PRN for CHEST PAIN, BOTTLE 11/16/14 Gabapentin* (Neurontin*) 300 Mg Capsule, 300 MG PO TID, CAP 11/16/14 Loratadine* (Loratadine*) 10 Mg Tablet, 10 MG PO DAILY, TAB 11/16/14 Hydrocortisone* Topical (Hydrocortisone* Topical) 2.5%-20 Gm Cream..g., 1 APPLIC TOP BID, TUB 11/16/14 Docusate Sodium* (Docusate Sodium*) 100 Mg Capsule, 200 MG PO QHS PRN for CONST IPATION, CAP 11/16/14 Calcium Carbonate-Vitamin D3 (Calcium 500 + D Tablet) 1 Each Tablet, 1 TAB PO BID, TAB 11/16/14 Benazepril Hcl* (Benazepril Hcl*) 20 Mg Tablet, 20 MG PO DAILY, TAB 11/16/14 Discontinued Scripts [place]-3/Dha/Epa/Fish Oil (FISH OIL EC 1,000 MG SOFTGEL) 1 Each Capsule.dr, 1000 MG PO BID for 30 Days Prov:PARDO,MIGUEL V. TECHNICAL SUPPORT ASSISTANT 11/19/15 Metformin Hcl (Glucophage) 500 Mg Tablet, 500 MG PO AC BREAKFAST DINNER for 30 Days, TAB Prov:PARDO,MIGUEL V. TECHNICAL SUPPORT ASSISTANT 11/19/15 Furosemide* (Furosemide*) 40 Mg Tablet, 40 MG PO DAILY@06 for 30 Days, TAB Prov:PARDO,MIGUEL V. TECHNICAL SUPPORT ASSISTANT 11/19/15 Insulin Aspart* (Novolog Insulin Pen*) 100 Unit/Ml Soln, 34 UNIT SC WITH MEALS for 30 Days Prov:PARDO,MIGUEL V. TECHNICAL SUPPORT ASSISTANT 11/19/15 Insulin Glargine* (Lantus*) 100 Unit/Ml Soln, 55 UNIT SC Q12 for 30 Days Prov:PARDO,MIGUEL V. TECHNICAL SUPPORT ASSISTANT 11/19/15 Metoprolol Succinate* (Toprol XL*) 50 Mg Tab.er.24h, 50 MG PO BID for 30 Days Prov:PARDOYVESA V. TECHNICAL SUPPORT ASSISTANT 11/19/15 Aspirin* (Aspirin* EC) 81 Mg Tablet.dr, 81 MG PO DAILY for 30 Days, TAB Prov:PARDOHERMINIAMIGUEL V. TECHNICAL SUPPORT ASSISTANT 11/19/15 Medications Current Medications Diagnostic Test (Pha) (Accu-Chek) 1 ea 02 XX ; Start 07/14/18 at 02:00 Insulin Aspart (Novolog Insulin Pen) NOVOLOG *MILD* ALGORITHM WITH MEALS BEDTIME SC Last administered on 07/14/18at 08:19; Admin Dose 5 UNIT; Start 07/13/18 at 17:55 Furosemide (Lasix) 40 mg BID DIURETICS IV Last administered on 07/14/18at 06:20; Admin Dose 40 MG; Start 07/13/18 at 18:00; Stop 07/14/18 at 18:01 Miscellaneous Information 1 ea NOTE XX ; Start 07/13/18 at 14:30 Glucose (Glutose) 15 gm Q15M PRN PO DECREASED GLUCOSE; Start 07/13/18 at 14:30 Glucose (Glutose) 22.5 gm Q15M PRN PO DECREASED GLUCOSE; Start 07/13/18 at 14 :30 Dextrose (D50w Syringe) 25 ml Q15M PRN IV DECREASED GLUCOSE; Start 07/13/18 at 14:30 Dextrose (D50w Syringe) 50 ml Q15M PRN IV DECREASED GLUCOSE; Start 07/13/18 at 14:30 Glucagon (Glucagen) 1 mg Q15M PRN IM DECREASED GLUCOSE; Start 07/13/18 at 14:30 Glucose (Glutose) 15 gm Q15M PRN BUCCAL DECREASED GLUCOSE; Start 07/13/18 at 14:30 Lorazepam (Ativan) 0.5 mg Q8H PRN PO .ANXIETY; Start 07/13/18 at 14:30 Ondansetron HCl (Zofran Inj) 4 mg Q6H PRN IV NAUSEA/VOMITING; Start 07/13/18 at 14:30 Aspirin (Aspirin) 81 mg DAILY PO Last administered on 07/14/18at 08:08; Admin Dose 81 MG; Start 07/14/18 at 09:00 Acetaminophen (Tylenol Tab) 650 mg Q6H PRN PO .PAIN 1-3 OR TEMP; Start 07/13/18 at 14:30 Acetaminophen/ Hydrocodone Bitart ([place] (5/325)) 1 tab Q6H PRN PO .PAIN 4-6 Last administered on 07/14/18 03:40; Admin Dose 1 TAB; Start 07/13/18 at 14:30 Zolpidem Tartrate (Ambien) 5 mg QHS PRN PO .INSOMNIA; Start 07/13/18 at 14:30 Docusate Sodium (Colace) 100 mg Q12 PO Last administered on 07/14/18 08:07; Admin Dose 100 MG; Start 07/13/18 at 14:30 Famotidine (Pepcid) 20 mg Q12 PO Last administered on 07/14/18 08:08; Admin Dose 20 MG; Start 07/13/18 at 21:00 Enoxaparin Sodium (Lovenox) 40 mg DAILY SC Last administered on 07/14/18 08:24; Admin Dose 40 MG; Start 07/14/18 at 09:00 Amlodipine Besylate (Norvasc) 5 mg DAILY PO Last administered on 07/14/18 08:09; Admin Dose 5 MG; Start 07/14/18 at 09:00 Carvedilol (Coreg) 6.25 mg BID PO Last administered on 07/14/18 08:09; Admin Dose 6.25 MG; Start 07/13/18 at 21:00 Dapsone (Dapsone) 25 mg BID PO Last administered on 07/14/18 08:09; Admin Dose 25 MG; Start 07/13/18 at 21:00 EZETIMIBE (Zetia) 10 mg HS PO Last administered on 07/13/18 21:16; Admin Dose 10 MG; Start 07/13/18 at 21:00 Fluticasone/ Vilanterol (Breo Ellipta 200-25 Mcg Inh) 1 inh DAILY INH Last administered on 07/14/18 08:07; Admin Dose 1 INH; Start 07/14/18 at 09:00 Insulin Aspart (Novolog Insulin Pen) 30 unit WITH MEALS SC Last administered on 07/14/18 08:22; Admin Dose 30 UNIT; Start 07/13/18 at 14:30 Pregabalin (Lyrica) 100 mg TID PO Last administered on 07/14/18 08:08; Admin Dose 100 MG; Start 07/13/18 at 16:15 Losartan Potassium (Cozaar) 100 mg DAILY PO Last administered on 07/14/18 08:10; Admin Dose 100 MG; Start 07/14/18 at 09:00 Fish Oil (Fish Oil) 2,000 mg BID PO Last administered on 07/14/18 08:07; Admin Dose 2,000 MG; Start 07/13/18 at 21:00 Pantoprazole (Protonix Tab) 40 mg DAILY@0600 PO Last administered on 07/14/18 06:19; Admin Dose 40 MG; Start 07/14/18 at 06:00 Atorvastatin Calcium (Lipitor) 40 mg QHS PO Last administered on 07/13/18 21:16; Admin Dose 40 MG; Start 07/13/18 at 21:00 Diagnostic Test (Pha) (Accu-Chek) 1 ea AC MEALS AND BEDTIME XX ; Start 07/13/18 at 17:25 Benazepril HCl (Lotensin) 10 mg DAILY PO Last administered on 07/14/18 08:10; Admin Dose 10 MG; Start 07/14/18 at 09:00 Insulin Glargine (Lantus) 55 units QHS SC Last administered on 07/13/18 21:21; Admin Dose 55 UNITS; Start 07/13/18 at 21:00 Assessment/Plan Hospital Course (Demo Recall) 1. Congestive heart failure exacerbation by previous stress and echo be systolic and acute on chronic- better now, con't gentle diuresis. 2. Hypertension - improved with Rx, will optimize fluid status now. 3. Dyslipidemia. 4. Abnormal electrocardiogram, assess for acute coronary syndrome. R/O TN. 5. Remote tobacco. 6. Chronic obstructive pulmonary disease - con't resp Rx - better now. 7. Diabetes mellitus- on meds, keep euvolemic. 8. Hyperkalemia. 9. Mildly increased BNP. EMIL CROSS MD July 14, 2018 09:38
--- NOTE | 2018-07-14 11:14 | RADRPT ---
Echocardiogram Report Patient Name: LIAN GERARDOPatient ID: [id number] : 1950 (67y 9m)Study Date: 07/14/2018 9:08:03 AM Gender: MAccession #: [id number] Tech: Adan Collier [facility] Location: 516-[address] Ref.Physician: CB MILLS Height(Cm): BSA: Weight(Kg): Quality: Technically Difficult StudyOrder Physician: CB MILLS Account #: Procedures: Echocardiographic Report: Transthoracic echocardiogram with complete 2D, M-Mode, and doppler examination. Indications: Congestive Heart Failure. Measurements: 2D/M Mode Doppler Measurement Value Normal Range Measurement Value Normal Range LVIDd 2D 4.1 [ 4.2 - 5.8 ] cm AV Peak Tank 1.5 [ 100.0 - 170.0 ] cm/sec LVIDs 2D 2.8 [ 2.5 - 4.0 ] cm AV Peak PG 9.0 [ 2.0 - 9.0 ] mmHg LVPWd 2D 1.2 [ 0.6 - 1.0 ] cm LVOT Peak Tank 1.2 [ 70.0 - 110.0 ] cm/sec IVSd 2D 1.7 [ 0.6 - 1.0 ] cm LVOT Peak PG 6.0 [ 2.0 - 6.0 ] mmHg IVS/LVPW 2D 1.4 ratio MV E Peak Tank 1.0 [ 60.0 - 130.0 ] cm/sec AoR Diam 2D 2.7 [ 2.6 - 3.4 ] cm MV A Peak Tank 1.3 [ 100.0 - 120.0 ] cm/sec LA/Ao 2D 2 ratio MV E/A 0.7 [ 0.8 - 1.5 ] ratio LA Dimen 2D 4.8 [ 3.0 - 4.0 ] cm MV Decel Time 261 [ 104 - 258 ] msec Lat E` Tank 0.1 [ 10.0 - 15.0 ] cm/sec MV E/A 0.7 [ 0.8 - 1.5 ] ratio Findings: Left Ventricle: Normal left ventricular cavity size. Sigmoid septum. Mild global left ventricular systolic dysfunction. Ejection fraction is visually estimated at 45 %. Tissue Doppler/Mitral Doppler indices are consistent with impaired relaxation (Stage I diastolic dysfunction). Right Ventricle: Normal right ventricular size. Normal right ventricular systolic function. Left Atrium: There is moderate enlargement of left atrium. Right Atrium: The right atrium is normal in size. Mitral Valve: Mild mitral leaflet calcification. Mild mitral annular calcification. Trace mitral regurgitation. Aortic Valve: No hemodynamically significant aortic stenosis by doppler. Aortic cusps appear mildly calcified. Tricuspid Valve: Normal appearance of the tricuspid valve. Unable to obtain RVSP due to minimal presence of tricuspid regurgitation. Pericardium: Normal pericardium with no significant pericardial effusion. Aorta: Normal aortic root. IVC: Normal size and normal respiratory collapse consistent with normal right atrial pressure. Conclusions: Normal left ventricular cavity size. Sigmoid septum. Mild global left ventricular systolic dysfunction. Ejection fraction is visually estimated at 45 %. Tissue Doppler/Mitral Doppler indices are consistent with impaired relaxation (Stage I diastolic dysfunction). Mild mitral leaflet calcification. Mild mitral annular calcification. Trace mitral regurgitation. No hemodynamically significant aortic stenosis by doppler. Aortic cusps appear mildly calcified. Normal appearance of the tricuspid valve. Unable to obtain RVSP due to minimal presence of tricuspid regurgitation. Electronically Signed By: Singh Sharma 2018-07-14 11:14:20 PDT
--- NOTE | 2018-07-14 16:15 | PN ---
DATE: 07/14/2018 SUBJECTIVE: Mr. Torres is stable this morning, has mild chest discomfort with palpitations, but no mick sea, no vomiting, no radiation of the pain. He was seen by cardiology this morning with no further r ecommendations. PHYSICAL EXAMINATION: VITAL SIGNS: Temperature 98, pulse is 65, blood pressure 98/55, O2 saturation 95% on room air. NECK: Supple. No JVD or lymphadenopathy. CARDIAC: S1, S2. No added sounds or murmurs. CHEST: Diminished air entry bilaterally, but no rales or wheezes. ABDOMEN: Obese. EXTREMITIES: No cyanosis, clubbing. A 1+ edema. NEUROLOGIC: Grossly intact. No focal deficits. IMAGING: Chest x-ray demonstrated small pleural effusion. Renal ultrasound was unremarkable. LABORATORY DATA: White count 6.6, hemoglobin 13.8, platelets of 163. Glucose was elevated at 239. INR within normal limits. Arterial blood gas: pH 7.33, pCO2 of 55, pO2 of 118. IMPRESSION AND PLAN: 1. The patient was admitted to rule out acute coronary syndrome negative. 2. Diabetes mellitus. 3. Obstructive sleep apnea. PLAN: 1. Continue antihypertensive and glycemic management. 2. Encourage out of bed. 3. Transition to p.o. diuretics. 4. Anticipate discharge tomorrow with followup with his primary screen vent binder, Dr. Omar Canales. Dictated By: LUIS NOVA MD SV/ELMER Conf#: [id number] DID#: [id number] CC: HERRERA HOFF MD; CB MILLS MD;*[facility]*
[2018-07-14] MEDS: ATORVASTATIN 40 MG TAB PO SCH (20:41)
[2018-07-14] MEDS: EZETIMIBE 10 MG TAB PO SCH (20:41)
[2018-07-14] MEDS: INSULIN GLARGINE [LANTus] (100 UNITS/ML) SYG SC SCH (21:09)
[2018-07-14] MEDS ORDERED: INSULIN ASPART [NOVOLOG] 3 ML PEN SC ONE (21:13)
[2018-07-15] VITALS (9 sets, daily range): BP systolic 101–130; BP diastolic 55–101; PULSE 66–101; RESP 18–19
[2018-07-15] MEDS: ACCU-CHEK XX SCH ×5 (02:00→21:00)
[2018-07-15] MEDS: PANTOPRAZOLE (EC) 40 MG TAB PO SCH (06:45)
[2018-07-15] MEDS: INSULIN ASPART [NOVOLOG] 3 ML PEN SC SCH ×7 (08:05→21:43)
[2018-07-15] MEDS: FISH OIL 1,000 MG CAP PO SCH ×3 (09:00→21:00)
[2018-07-15] MEDS ORDERED: FUROSEMIDE 40 MG INJ IV SCH (09:00)
[2018-07-15] MEDS: FLUTICASONE/VILANTEROL 200-25 INH DEVICE INH SCH ×2 (09:00→13:18)
--- NOTE | 2018-07-15 09:00 | RADRPT ---
Vent Rate: 67 bpm RR Interval: 896 msec MT Interval: 203 msec QRS Duration: 98 msec QT Interval: 408 msec QTC Interval: 431 msec P-R-T [place]: -41 - 67 - 136 degrees Sinus rhythm...normal P axis, V-rate 50- 99 Abnormal T, consider ischemia, lateral leads.. Electronically Signed By: Naga Chery
[2018-07-15] MEDS: DOCUSATE SODIUM 100 MG CAP PO SCH ×2 (09:06→21:00)
[2018-07-15] MEDS: ASPIRIN 81 MG TAB PO SCH (09:06)
[2018-07-15] MEDS: AMLODIPINE 5 MG TAB PO SCH (09:06)
[2018-07-15] MEDS: DAPSONE 25 MG TABLET PO SCH ×2 (09:07→21:00)
[2018-07-15] MEDS: FAMOTIDINE 20 MG TAB PO SCH ×2 (09:07→21:00)
[2018-07-15] MEDS: BENAZEPRIL 10 MG TAB PO SCH (09:07)
[2018-07-15] MEDS: LOSARTAN 50 MG TAB PO SCH (09:07)
[2018-07-15] MEDS: PREGABALIN 100 MG CAP PO SCH ×3 (09:16→21:00)
[2018-07-15] MEDS: ENOXAPARIN 40 MG/0.4 ML SYG SC SCH (09:24)
--- NOTE | 2018-07-15 12:05 | PN ---
Date/Time of Note Date/Time of Note DATE: 07/15/18 TIME: 12:02 Assessment/Plan VTE Prophylaxis Risk score (from Nsg)>0 risk: 3 Pharmacological prophylaxis: LMWH Lines/Catheters IV Catheter Type (from Nrsg): Saline Lock Assessment/Plan Hospital Course S: no new complaints, no more chest pain, O : General: A&O x3, answering questions appropriately, obese HEENT: NC/ AT. PERRL. EOM intact Neck: supple CVS: S1, S2, RRR. no murmurs. no pain on chest wall palpation Lungs: CTA b/l. no wheezing or rhonchi Abd: soft, nontender, +BS Ext: moving all extremities skin: macular erythematous lesions asssessment and plan: 67-year-old male with known COPD on home oxygen, known coronary artery disease status post IL and known cardiomyopathy who presents with worsening shortness of breath and chest pressure admitted and managed as follows: 1. Chest pain -ACS ruled out 2. Known coronary artery disease status post PCI 3. CHF exacerbation, acute on chronic, systolic 4. Acute on chronic renal respiratory insufficiency 5. Known COPD on home oxygen 6. Morbid obesity 7. Dyslipidemia with hypertriglyceridemia 8. Diabetes mellitus with poor home control dispo : Patient still with very poorly controlled blood sugar despite high insulin dosing as well as pseudohyponatremia likely secondary to hypoglycemia. -Creatinine also trending up likely secondary to diuresis. -We will obtain endocrinology consult, continue to monitor in-house on telemetry for now, continue serial lab monitoring. Not cleared for discharge at this time. Result Diagram: 07/15/18 0724 07/15/18 0724 Results 24hrs Laboratory Tests Test 07/14/18 17:09 07/14/18 20:55 07/15/18 02:26 07/15/18 07:24 Bedside Glucose 240 H 320 H 258 H White Blood Count 5.1 # Red Blood Count 5.10 Hemoglobin 13.6 L Hematocrit 41.6 L Mean Corpuscular 81.6 L Volume Mean Corpuscular 26.7 L Hemoglobin Mean Corpuscular 32.7 Hemoglobin Concent Red Cell 14.1 Distribution Width Platelet Count 156 Mean Platelet Volume 9.4 Immature 0.400 Granulocytes % Neutrophils % 58.4 Lymphocytes % 17.1 Monocytes % 7.9 Eosinophils % 15.6 H Basophils % 0.6 Nucleated Red Blood 0.0 Cells % Immature 0.020 Granulocytes # Neutrophils # 3.0 Lymphocytes # 0.9 Monocytes # 0.4 Eosinophils # 0.8 H Basophils # 0.0 Nucleated Red Blood 0.0 Cells # Sodium Level 129 L Potassium Level 4.5 Chloride Level 91 L Carbon Dioxide Level 30 Anion Gap 8 Blood Urea Nitrogen 38 #H Creatinine 1.52 H Est Glomerular 46 L Filtrat Rate mL/min Glucose Level 332 H Calcium Level 8.6 Test 07/15/18 07:57 07/15/18 11:43 Bedside Glucose 329 H 351 H Exam/Review of Systems Exam Vitals Vital Signs Date Temp Pulse Resp B/P (MAP) Pulse Ox O2 O2 Flow FiO2 Time Delivery Rate 07/15/18 98.2 74 18 101/64 94 11:15 (76) 07/14/18 Room Air 04:41 07/13/18 2.0 12:38 Intake and Output 07/14/18 07/14/18 07/15/18 1515:00 23:00 07:00 IntakeIntake Total 955 ml 600 ml OutputOutput Total 300 ml 200 ml BalanceBalance 655 ml 400 ml Results Results 24hrs Laboratory Tests Test 07/14/18 17:09 07/14/18 20:55 07/15/18 02:26 07/15/18 07:24 Bedside Glucose 240 H 320 H 258 H White Blood Count 5.1 # Red Blood Count 5.10 Hemoglobin 13.6 L Hematocrit 41.6 L Mean Corpuscular 81.6 L Volume Mean Corpuscular 26.7 L Hemoglobin Mean Corpuscular 32.7 Hemoglobin Concent Red Cell 14.1 Distribution Width Platelet Count 156 Mean Platelet Volume 9.4 Immature 0.400 Granulocytes % Neutrophils % 58.4 Lymphocytes % 17.1 Monocytes % 7.9 Eosinophils % 15.6 H Basophils % 0.6 Nucleated Red Blood 0.0 Cells % Immature 0.020 Granulocytes # Neutrophils # 3.0 Lymphocytes # 0.9 Monocytes # 0.4 Eosinophils # 0.8 H Basophils # 0.0 Nucleated Red Blood 0.0 Cells # Sodium Level 129 L Potassium Level 4.5 Chloride Level 91 L Carbon Dioxide Level 30 Anion Gap 8 Blood Urea Nitrogen 38 #H Creatinine 1.52 H Est Glomerular 46 L Filtrat Rate mL/min Glucose Level 332 H Calcium Level 8.6 Test 07/15/18 07:57 07/15/18 11:43 Bedside Glucose 329 H 351 H Medications Medication Current Medications Diagnostic Test (Pha) (Accu-Chek) 1 ea 02 XX ; Start 07/14/18 at 02:00 Insulin Aspart (Novolog Insulin Pen) NOVOLOG *MILD* ALGORITHM WITH MEALS BEDTIME SC Last administered on 07/15/18at 11:45; Admin Dose 7 UNIT; Start 07/13/18 at 17:55 Miscellaneous Information 1 ea NOTE XX ; Start 07/13/18 at 14:30 Glucose (Glutose) 15 gm Q15M PRN PO DECREASED GLUCOSE; Start 07/13/18 at 14:30 Glucose (Glutose) 22.5 gm Q15M PRN PO DECREASED GLUCOSE; Start 07/13/18 at 14:30 Dextrose (D50w Syringe) 25 ml Q15M PRN IV DECREASED GLUCOSE; Start 07/13/18 at 14:30 Dextrose (D50w Syringe) 50 ml Q15M PRN IV DECREASED GLUCOSE; Start 07/13/18 at 14:30 Glucagon (Glucagen) 1 mg Q15M PRN IM DECREASED GLUCOSE; Start 07/13/18 at 14:30 Glucose (Glutose) 15 gm Q15M PRN BUCCAL DECREASED GLUCOSE; Start 07/13/18 at 14:30 Lorazepam (Ativan) 0.5 mg Q8H PRN PO .ANXIETY; Start 07/13/18 at 14:30 Ondansetron HCl (Zofran Inj) 4 mg Q6H PRN IV NAUSEA/VOMITING; Start 07/13/18 at 14:30 Aspirin (Aspirin) 81 mg DAILY PO Last administered on 07/15/18at 09:06; Admin Dose 81 MG; Start 07/14/18 at 09:00 Acetaminophen (Tylenol Tab) 650 mg Q6H PRN PO .PAIN 1-3 OR TEMP; Start 07/13/18 at 14:30 Acetaminophen/ Hydrocodone Bitart ([place] (5/325)) 1 tab Q6H PRN PO .PAIN 4-6 Last administered on 07/14/18at 20:45; Admin Dose 1 TAB; Start 07/13/18 at 14:30 Zolpidem Tartrate (Ambien) 5 mg QHS PRN PO .INSOMNIA; Start 07/13/18 at 14:30 Docusate Sodium (Colace) 100 mg Q12 PO Last administered on 07/15/18 09:06; Admin Dose 100 MG; Start 07/13/18 at 14:30 Famotidine (Pepcid) 20 mg Q12 PO Last administered on 07/15/18 09:07; Admin Dose 20 MG; Start 07/13/18 at 21:00 Enoxaparin Sodium (Lovenox) 40 mg DAILY SC Last administered on 07/15/18 09:24; Admin Dose 40 MG; Start 07/14/18 at 09:00 Amlodipine Besylate (Norvasc) 5 mg DAILY PO Last administered on 07/15/18 09:06; Admin Dose 5 MG; Start 07/14/18 at 09:00 Carvedilol (Coreg) 6.25 mg BID PO Last administered on 07/15/18 09:07; Admin Dose 6.25 MG; Start 07/13/18 at 21:00 Dapsone (Dapsone) 25 mg BID PO Last administered on 07/15/18 09:07; Admin Dose 25 MG; Start 07/13/18 at 21:00 EZETIMIBE (Zetia) 10 mg HS PO Last administered on 07/14/18 20:41; Admin Dose 10 MG; Start 07/13/18 at 21:00 Fluticasone/ Vilanterol (Breo Ellipta 200-25 Mcg Inh) 1 inh DAILY INH Last administered on 07/14/18 08:07; Admin Dose 1 INH; Start 07/14/18 at 09:00 Insulin Aspart (Novolog Insulin Pen) 30 unit WITH MEALS SC Last administered on 07/15/18 11:47; Admin Dose 30 UNIT; Start 07/13/18 at 14:30 Pregabalin (Lyrica) 100 mg TID PO Last administered on 07/15/18 09:16; Admin Dose 100 MG; Start 07/13/18 at 16:15 Losartan Potassium (Cozaar) 100 mg DAILY PO Last administered on 07/15/18 09:07; Admin Dose 100 MG; Start 07/14/18 at 09:00 Fish Oil (Fish Oil) 2,000 mg BID PO Last administered on 07/14/18 20:42; Admin Dose 2,000 MG; Start 07/13/18 at 21:00 Pantoprazole (Protonix Tab) 40 mg DAILY@0600 PO Last administered on 07/15/18 06:45; Admin Dose 40 MG; Start 07/14/18 at 06:00 Atorvastatin Calcium (Lipitor) 40 mg QHS PO Last administered on 07/14/18at 20:41; Admin Dose 40 MG; Start 07/13/18 at 21:00 Diagnostic Test (Pha) (Accu-Chek) 1 ea AC MEALS AND BEDTIME XX ; Start 07/13/18 at 17:25 Benazepril HCl (Lotensin) 10 mg DAILY PO Last administered on 07/15/18 09:07; Admin Dose 10 MG; Start 07/14/18 at 09:00 Insulin Glargine (Lantus) 55 units QHS SC Last administered on 07/14/18 21:09; Admin Dose 55 UNITS; Start 07/13/18 at 21:00 Furosemide (Lasix) 40 mg DAILY IV Last administered on 07/15/18 09:08; Admin Dose 40 MG; Start 07/15/18 at 09:00 CB MILLS July 15, 2018 12:05
[2018-07-15] MEDS ORDERED: IOHEXOL 14.3 MG(I)/ML (ADULT) BTL PO ONE (13:30)
--- NOTE | 2018-07-15 13:43 | CONS ---
Assessment/Plan Assessment/Plan Problems: (1) Diabetes mellitus type 2 in obese Status: Chronic Comment: His diabetes control has gone awry.The patient is under the impression that steroids are the cause though DAPSONE is not likely to do this. I will try and get this smoothed out a little bit before he is discharged home. Use low dose metformin (2) Systolic and diastolic CHF, acute on chronic Status: Chronic Comment: Please maximize usage of ESTUARDO inhibitors and beta-blockers without dihydropyridine calcium channel blockers (3) Morbid obesity with BMI of 40.0-44.9, adult Status: Chronic Comment: Noted. Please note this patient was lost 10 kg since he was here in November 2015 (4) Obstructive sleep apnea of adult Status: Chronic Comment: Continue with BiPAP (5) Mixed hyperlipidemia due to type 2 diabetes mellitus Status: Chronic Comment: Continue with treatment CC: CB MILLS; EMIL CROSS MD ; Consultation Date/Type/Reason Admit Date/Time July 13, 2018 at 07:59 Date of Consultation: July 15, 2018 Type of Consult Endocrinology Reason for Consultation Diabetes mellitus type 2, morbid obesity, diabetic peripheral neuropathy, obstructive sleep apnea, CHF systolic and diastolic, COPD, obesity hypov entilation syndrome, paroxysmal atrial fibrillation, hypertension, hyperlipidemia, dysthymia Requesting Provider: CB MILLS Date/Time of Note DATE: 07/15/18 TIME: 13:31 Hx of Present Illness Charming 67-year-old gentleman with a history of morbid obesity and insulin resistance syndrome leading to diabetes mellitus type 2. He has complications of proliferative proliferative diabetic retinopathy and peripheral neuropathy. He had been doing well with his sugars as he describes that using a basal bolus regimen with Basaglar and NovoLog. He developed a skin condition was placed on steroids which is played havoc with his sugars. Please note he was not given additional medications to cover for the dosing of the oral steroids. Been admitted to the hospital 1 of his issues being his diabetes again out of control. Constitutional: no complaints Eyes: no complaints ENT: no complaints Respiratory: no complaints Cardiovascular: no complaints Gastrointestinal: no complaints Genitourinary: no complaints Skin: pruritis, rash Neurologic: no complaints Endocrine: no complaints Past Medical History Medical History: congestive heart failure (Systolic and diastolic), coronary artery disease, diabetes (Type 2 diabetes with diabetic peripheral neuropathy and proliferative retinopathy with macular edema OD), high cholesterol, hypertension, other (Orbit obesity; obstructive sleep apnea; obesity hypoventilation syndrome; osteoarthritis; dysthymia) Home Meds Reported Medications Ergocalciferol (Vitamin D2) (VITAMIN D2) 50,000 Unit Capsule, 15367 UNIT PO ONCE A WEEK, CAP PT NOT SURE WHICH DAY 07/13/18 Exenatide Microspheres (Bydureon Pen) 2 Mg/0.65 Ml Pen.injctr, 2 MG SQ Q7D, EACH PT NOT SURE WHICH DAY 07/13/18 Insulin Aspart* (Novolog Insulin Pen*) 100 Unit/Ml Soln, 40 UNIT SC WITH MEALS, EA 07/13/18 Insulin Glargine,Hum.rec.anlog (Basaglar Kwikpen U-100) 100 Unit/1 Ml Insuln.p en, 60 UNIT SC QHS, EA 07/13/18 Furosemide* (Furosemide*) 40 Mg/5 Ml Solution, 40 MG PO DAILY, #150 ML 07/13/18 Ezetimibe* (Zetia*) 10 Mg Tablet, 10 MG PO HS, TAB 07/13/18 Olmesartan Medoxomil (Benicar) 20 Mg Tablet, 20 MG PO DAILY, #30 TAB 07/13/18 Metformin Hcl* (Metformin Hcl*) 1,000 Mg Tablet, 1000 MG PO WITH BREAKFAST DINNE, #60 TAB 07/13/18 Carvedilol* (Carvedilol*) 6.25 Mg Tablet, 6.25 MG PO BID, #60 TAB 07/13/18 Nitroglycerin* (Nitrostat*) 0.4 Mg Tab.subl, 0.4 MG SL Q5MIN PRN for CHEST PAIN, BOTTLE 07/13/18 Cetirizine Hcl* (Cetirizine Hcl*) 10 Mg Tablet, 10 MG PO DAILY, #30 TAB 07/13/18 Dapsone* (Dapsone*) 25 Mg Tablet, 25 MG PO BID, #60 TAB STOP IF BLOOD SUGAR IS OVER 200 07/13/18 Omeprazole* (Omeprazole*) 40 Mg Capsule.dr, 40 MG PO DAILY, #30 CAP 07/13/18 Fluticasone/Vilanterol (Breo Ellipta 200-25 Mcg INH) 1 Each Blst.w.dev, 1 PUFF INHALATION DAILY, #1 INHALER 07/13/18 [place]-3 Acid Ethyl Esters (Lovaza) 1 Gm Capsule, 2 GM PO BID, CAP 07/13/18 Rosuvastatin Calcium* (Crestor*) 10 Mg Tablet, 10 MG PO QHS, #30 TAB 07/13/18 Amlodipine Besylate* (Norvasc*) 5 Mg Tablet, 5 MG PO DAILY, TAB 07/13/18 Albuterol Sulfate* (Ventolin HFA*) 18 Gm Hfa.aer.ad, 2 PUFF INHALATION Q4H, #1 INHALER 07/13/18 Pregabalin* (Lyrica*) 100 Mg Capsule, 100 MG PO TID, CAP 07/13/18 Zolpidem Tartrate* (Zolpidem Tartrate*) 10 Mg Tablet, 10 MG PO QHS PRN for INSOMNIA, #30 TAB 07/13/18 Discontinued Reported Medications Albuterol Sulfate* (Proair HFA*) 8.5 Gm Hfa.aer.ad, 2 PUFF INH Q4-6 HOURS PRN for WHEEZING AND SOB, INH 11/16/14 Potassium Chloride* (Klor-Con*) 10 Meq Tabsr, 10 MEQ PO DAILY W/ FOOD, TAB.SA 11/16/14 Omeprazole* (Omeprazole*) 20 Mg Capsule.dr, 20 MG PO DAILY, CAP 11/16/14 Hydrocodone Bit-Acetaminophen* ([place]*) 5-325 Mg Tab, 1 TAB PO Q6 PRN for PAIN, TAB 11/16/14 Nitroglycerin* (Nitrostat*) 0.4 Mg Tab.subl, 0.4 MG SL Q5MIN PRN for CHEST PAIN, BOTTLE 11/16/14 Gabapentin* (Neurontin*) 300 Mg Capsule, 300 MG PO TID, CAP 11/16/14 Loratadine* (Loratadine*) 10 Mg Tablet, 10 MG PO DAILY, TAB 11/16/14 Hydrocortisone* Topical (Hydrocortisone* Topical) 2.5%-20 Gm Cream..g., 1 APPLIC TOP BID, TUB 11/16/14 Docusate Sodium* (Docusate Sodium*) 100 Mg Capsule, 200 MG PO QHS PRN for CONSTIPATION, CAP 11/16/14 Calcium Carbonate-Vitamin D3 (Calcium 500 + D Tablet) 1 Each Tablet, 1 TAB PO BID, TAB 11/16/14 Benazepril Hcl* (Benazepril Hcl*) 20 Mg Tablet, 20 MG PO DAILY, TAB 11/16/14 Discontinued Scripts [place]-3/Dha/Epa/Fish Oil (FISH OIL EC 1,000 MG SOFTGEL) 1 Each Capsule.dr, 1000 MG PO BID for 30 Days Prov:PARDO,MIGUEL V. INSPECTOR [employer]AMES 11/19/15 Metformin Hcl (Glucophage) 500 Mg Tablet, 500 MG PO AC BREAKFAST DINNER for 30 Days, TAB Prov:PARDO,MIGUEL V. INSPECTOR [employer]AMES 11/19/15 Furosemide* (Furosemide*) 40 Mg Tablet, 40 MG PO DAILY@06 for 30 Days, TAB Prov:PARDO,MIGUEL V. INSPECTOR [employer]AMES 11/19/15 Insulin Aspart* (Novolog Insulin Pen*) 100 Unit/Ml Soln, 34 UNIT SC WITH MEALS for 30 Days Prov:PARDO,MIGUEL V. INSPECTOR [employer]AMES 11/19/15 Insulin Glargine* (Lantus*) 100 Unit/Ml Soln, 55 UNIT SC Q12 for 30 Days Prov:PARDO,MGIUEL V. INSPECTOR [employer] FRAMES 11/19/15 Metoprolol Succinate* (Toprol XL*) 50 Mg Tab.er.24h, 50 MG PO BID for 30 Days Prov:PARDO,MIGUEL V. INSPECTOR [employer]AMES 11/19/15 Aspirin* (Aspirin* EC) 81 Mg Tablet.dr, 81 MG PO DAILY for 30 Days, TAB Prov:PARDO,MIGUEL V. INSPECT[employer]AMES 11/19/15 Medications Current Medications Diagnostic Test (Pha) (Accu-Chek) 1 ea 02 XX ; Start 07/14/18 at 02:00 Insulin Aspart (Novolog Insulin Pen) NOVOLOG *MILD* ALGORITHM WITH MEALS BEDTIME SC Last administered on 07/15/18at 11:45; Admin Dose 7 UNIT; Start 07/13/18 at 17:55 Miscellaneous Information 1 ea NOTE XX ; Start 07/13/18 at 14:30 Glucose (Glutose) 15 gm Q15M PRN PO DECREASED GLUCOSE; Start 07/13/18 at 14:30 Glucose (Glutose) 22.5 gm Q15M PRN PO DECREASED GLUCOSE; Start 07/13/18 at 14:30 Dextrose (D50w Syringe) 25 ml Q15M PRN IV DECREASED GLUCOSE; Start 07/13/18 at 14:30 Dextrose (D50w Syringe) 50 ml Q15M PRN IV DECREASED GLUCOSE; Start 07/13/18 at 14:30 Glucagon (Glucagen) 1 mg Q15M PRN IM DECREASED GLUCOSE; Start 07/13/18 at 14:30 Glucose (Glutose) 15 gm Q15M PRN BUCCAL DECREASED GLUCOSE; Start 07/13/18 at 14:30 Lorazepam (Ativan) 0.5 mg Q8H PRN PO .ANXIETY; Start 07/13/18 at 14:30 Ondansetron HCl (Zofran Inj) 4 mg Q6H PRN IV NAUSEA/VOMITING; Start 07/13/18 at 14:30 Aspirin (Aspirin) 81 mg DAILY PO Last administered on 07/15/18 09:06; Admin Dose 81 MG; Start 07/14/18 at 09:00 Acetaminophen (Tylenol Tab) 650 mg Q6H PRN PO .PAIN 1-3 OR TEMP; Start 07/13/18 at 14:30 Acetaminophen/ Hydrocodone Bitart ([place] (5/325)) 1 tab Q6H PRN PO .PAIN 4-6 Last administered on 07/14/18at 20:45; Admin Dose 1 TAB; Start 07/13/18 at 14:30 Zolpidem Tartrate (Ambien) 5 mg QHS PRN PO .INSOMNIA; Start 07/13/18 at 14:30 Docusate Sodium (Colace) 100 mg Q12 PO Last administered on 07/15/18 09:06; Admin Dose 100 MG; Start 07/13/18 at 14:30 Famotidine (Pepcid) 20 mg Q12 PO Last administered on 07/15/18 09:07; Admin Dose 20 MG; Start 07/13/18 at 21:00 Enoxaparin Sodium (Lovenox) 40 mg DAILY SC Last administered on 07/15/18 09:24; Admin Dose 40 MG; Start 07/14/18 at 09:00 Amlodipine Besylate (Norvasc) 5 mg DAILY PO Last administered on 07/15/18 09:06; Admin Dose 5 MG; Start 07/14/18 at 09:00 Carvedilol (Coreg) 6.25 mg BID PO Last administered on 07/15/18 09:07; Admin Dose 6.25 MG; Start 07/13/18 at 21:00 Dapsone (Dapsone) 25 mg BID PO Last administered on 07/15/18 09:07; Admin Dose 25 MG; Start 07/13/18 at 21:00 EZETIMIBE (Zetia) 10 mg HS PO Last administered on 07/14/18 20:41; Admin Dose 10 MG; Start 07/13/18 at 21:00 Fluticasone/ Vilanterol (Breo Ellipta 200-25 Mcg Inh) 1 inh DAILY INH Last administered on 07/15/18 13:18; Admin Dose 1 INH; Start 07/14/18 at 09:00 Insulin Aspart (Novolog Insulin Pen) 30 unit WITH MEALS SC Last administered on 07/15/18 11:47; Admin Dose 30 UNIT; Start 07/13/18 at 14:30 Pregabalin (Lyrica) 100 mg TID PO Last administered on 07/15/18 13:18; Admin Dose 100 MG; Start 07/13/18 at 16:15 Losartan Potassium (Cozaar) 100 mg DAILY PO Last administered on 07/15/18 09:07; Admin Dose 100 MG; Start 07/14/18 at 09:00 Fish Oil (Fish Oil) 2,000 mg BID PO Last administered on 07/15/18 13:18; Admin Dose 2,000 MG; Start 07/13/18 at 21:00 Pantoprazole (Protonix Tab) 40 mg DAILY@0600 PO Last administered on 07/15/18 06:45; Admin Dose 40 MG; Start 07/14/18 at 06:00 Atorvastatin Calcium (Lipitor) 40 mg QHS PO Last administered on 07/14/18 20:41; Admin Dose 40 MG; Start 07/13/18 at 21:00 Diagnostic Test (Pha) (Accu-Chek) 1 ea AC MEALS AND BEDTIME XX ; Start 07/13/18 at 17:25 Benazepril HCl (Lotensin) 10 mg DAILY PO Last administered on 07/15/18 09:07; Admin Dose 10 MG; Start 07/14/18 at 09:00 Insulin Glargine (Lantus) 55 units QHS SC Last administered on 07/14/18 21:09; Admin Dose 55 UNITS; Start 07/13/18 at 21:00 Allergies: Coded Allergies: peanut (Verified Allergy, Intermediate, TIGHTNESS IN THROAT, SOB, 07/13/18) Past Surgical History Past Surgical Hx: other (Left inguinal hernia repair as a child; right knee arthroscopy; left arm surgery; laser treatment to the right eye) Family History Significant Family History: COPD, diabetes, hypertension Social History Alcohol Use: none Smoking Status: Former smoker Drug Use: none Exam/Review of Systems Exam Vitals Vital Signs Date Temp Pulse Resp B/P (MAP) Pulse Ox O2 O2 Flow FiO2 Time Delivery Rate 07/15/18 76 12:00 07/15/18 98.2 18 101/64 94 11:15 (76) 07/14/18 Room Air 04:41 07/13/18 2.0 12:38 Intake and Output 07/14/18 07/14/18 07/15/18 1515:00 23:00 07:00 IntakeIntake Total 955 ml 600 ml OutputOutput Total 300 ml 200 ml BalanceBalance 655 ml 400 ml Constitutional: alert, oriented, obese Neck: supple, non-tender Respiratory: wheezing Cardiovascular: regular rate and rhythm, nl pulses Gastrointestinal: soft, nl liver, spleen, non-tender Extremities: normal pulses Results Result Diagram: 07/15/18 0724 07/15/18 0724 Results 24hrs Laboratory Tests Test 07/14/18 17:09 07/14/18 20:55 07/15/18 02:26 07/15/18 07:24 Bedside Glucose 240 H 320 H 258 H White Blood Count 5.1 # Red Blood Count 5.10 Hemoglobin 13.6 L Hematocrit 41.6 L Mean Corpuscular 81.6 L Volume Mean Corpuscular 26.7 L Hemoglobin Mean Corpuscular 32.7 Hemoglobin Concent Red Cell 14.1 Distribution Width Platelet Count 156 Mean Platelet Volume 9.4 Immature 0.400 Granulocytes % Neutrophils % 58.4 Lymphocytes % 17.1 Monocytes % 7.9 Eosinophils % 15.6 H Basophils % 0.6 Nucleated Red Blood 0.0 Cells % Immature 0.020 Granulocytes # Neutrophils # 3.0 Lymphocytes # 0.9 Monocytes # 0.4 Eosinophils # 0.8 H Basophils # 0.0 Nucleated Red Blood 0.0 Cells # Sodium Level 129 L Potassium Level 4.5 Chloride Level 91 L Carbon Dioxide Level 30 Anion Gap 8 Blood Urea Nitrogen 38 #H Creatinine 1.52 H Est Glomerular 46 L Filtrat Rate mL/min Glucose Level 332 H Calcium Level 8.6 Test 07/15/18 07:57 07/15/18 11:43 Bedside Glucose 329 H 351 H Medications Medication Current Medications Diagnostic Test (Pha) (Accu-Chek) 1 ea 02 XX ; Start 07/14/18 at 02:00 Insulin Aspart (Novolog Insulin Pen) NOVOLOG *MILD* ALGORITHM WITH MEALS BEDTIME SC Last administered on 07/15/18at 11:45; Admin Dose 7 UNIT; Start at 17:55 Miscellaneous Information 1 ea NOTE XX ; Start 07/13/18 at 14:30 Glucose (Glutose) 15 gm Q15M PRN PO DECREASED GLUCOSE; Start 07/13/18 at 14:30 Glucose (Glutose) 22.5 gm Q15M PRN PO DECREASED GLUCOSE; Start 07/13/18 at 14:30 Dextrose (D50w Syringe) 25 ml Q15M PRN IV DECREASED GLUCOSE; Start 07/13/18 at 14:30 Dextrose (D50w Syringe) 50 ml Q15M PRN IV DECREASED GLUCOSE; Start 07/13/18 at 14:30 Glucagon (Glucagen) 1 mg Q15M PRN IM DECREASED GLUCOSE; Start 07/13/18 at 14:30 Glucose (Glutose) 15 gm Q15M PRN BUCCAL DECREASED GLUCOSE; Start 07/13/18 at 14:30 Lorazepam (Ativan) 0.5 mg Q8H PRN PO .ANXIETY; Start 07/13/18 at 14:30 Ondansetron HCl (Zofran Inj) 4 mg Q6H PRN IV NAUSEA/VOMITING; Start 07/13/18 at 14:30 Aspirin (Aspirin) 81 mg DAILY PO Last administered on 07/15/18at 09:06; Admin Dose 81 MG; Start 07/14/18 at 09:00 Acetaminophen (Tylenol Tab) 650 mg Q6H PRN PO .PAIN 1-3 OR TEMP; Start 07/13/18 at 14:30 Acetaminophen/ Hydrocodone Bitart ([place] (5/325)) 1 tab Q6H PRN PO .PAIN 4-6 Last administered on 07/14/18at 20:45; Admin Dose 1 TAB; Start 07/13/18 at 14:30 Zolpidem Tartrate (Ambien) 5 mg QHS PRN PO .INSOMNIA; Start 07/13/18 at 14:30 Docusate Sodium (Colace) 100 mg Q12 PO Last administered on 07/15/18 09:06; Admin Dose 100 MG; Start 07/13/18 at 14:30 Famotidine (Pepcid) 20 mg Q12 PO Last administered on 07/15/18 09:07; Admin Dose 20 MG; Start 07/13/18 at 21:00 Enoxaparin Sodium (Lovenox) 40 mg DAILY SC Last administered on 07/15/18 09:24; Admin Dose 40 MG; Start 07/14/18 at 09:00 Amlodipine Besylate (Norvasc) 5 mg DAILY PO Last administered on 07/15/18 09:06; Admin Dose 5 MG; Start 07/14/18 at 09:00 Carvedilol (Coreg) 6.25 mg BID PO Last administered on 07/15/18 09:07; Admin Dose 6.25 MG; Start 07/13/18 at 21:00 Dapsone (Dapsone) 25 mg BID PO Last administered on 07/15/18 09:07; Admin Dose 25 MG; Start 07/13/18 at 21:00 EZETIMIBE (Zetia) 10 mg HS PO Last administered on 07/14/18 20:41; Admin Dose 10 MG; Start 07/13/18 at 21:00 Fluticasone/ Vilanterol (Breo Ellipta 200-25 Mcg Inh) 1 inh DAILY INH Last administered on 07/15/18 13:18; Admin Dose 1 INH; Start 07/14/18 at 09:00 Insulin Aspart (Novolog Insulin Pen) 30 unit WITH MEALS SC Last administered on 07/15/18 11:47; Admin Dose 30 UNIT; Start 07/13/18 at 14:30 Pregabalin (Lyrica) 100 mg TID PO Last administered on 07/15/18 13:18; Admin Dose 100 MG; Start 07/13/18 at 16:15 Losartan Potassium (Cozaar) 100 mg DAILY PO Last administered on 07/15/18 09:07; Admin Dose 100 MG; Start 07/14/18 at 09:00 Fish Oil (Fish Oil) 2,000 mg BID PO Last administered on 5/29/19at 13:18; Admin Dose 2,000 MG; Start 07/13/18 at 21:00 Pantoprazole (Protonix Tab) 40 mg DAILY@0600 PO Last administered on 07/15/18at 06:45; Admin Dose 40 MG; Start 07/14/18 at 06:00 Atorvastatin Calcium (Lipitor) 40 mg QHS PO Last administered on 07/14/18at 20:41; Admin Dose 40 MG; Start 07/13/18 at 21:00 Diagnostic Test (Pha) (Accu-Chek) 1 ea AC MEALS AND BEDTIME XX ; Start 07/13/18 at 17:25 Benazepril HCl (Lotensin) 10 mg DAILY PO Last administered on 07/15/18at 09:07; Admin Dose 10 MG; Start 07/14/18 at 09:00 Insulin Glargine (Lantus) 55 units QHS SC Last administered on 07/14/18at 21:09; Admin Dose 55 UNITS; Start 07/13/18 at 21:00 MIGUEL ANGEL OBRIEN MD July 15, 2018 13:41
[2018-07-15] MEDS: metFORMIN 500 MG TAB PO SCH (17:44)
--- NOTE | 2018-07-15 20:41 | CONS ---
Assessment/Plan Assessment/Plan Hospital Course (Demo Recall) IMPRESSION: 1. Congestive heart failure exacerbation by previous stress and echo be systolic and acute on chronic.-neg trop x 3 2. Hypertension. 3. Dyslipidemia. 4. Abnormal electrocardiogram, assess for acute coronary syndrome. 5. Remote tobacco. 6. Chronic obstructive pulmonary disease. 7. Diabetes mellitus. 8. Hyperkalemia. 9. Mildly increased BNP. 10. acute renal failure Recc: -Tele -Continue BB/and ACEI with uptitration as necessary but may consider afterload reduction with hydralazine additionally during this period of acute renal failure with research & insights executive in flux -Would not uses ARB/ACEI combination at this time as likely to lead to more adverse drug related side effects with little improvement in hard outcomes in treatment of systolic heart failure. Therefore as losartan maxed will d/c ACEI. -Will change coreg to B 1 selective BB -Follow volume status/creatnine closely -Follow blood sugars closely with ongoing adjustment of insulin/metformin Consultation Date/Type/Reason Admit Date/Time July 13, 2018 at 07:59 Initial Consult Date 07/15/18 Type of Consult Cardiology Reason for Consultation cardiomyopathy Requesting Provider: CB MILLS Date/Time of Note DATE: 07/15/18 TIME: 20:28 Exam/Review of Systems Vital Signs Vitals Vital Signs Date Temp Pulse Resp B/P (MAP) Pulse Ox O2 O2 Flow FiO2 Time Delivery Rate 07/15/18 71 16:00 07/15/18 98.3 18 130/101 96 15:22 (111) 07/14/18 Room Air 04:41 07/13/18 2.0 12:38 Intake and Output 07/14/18 07/14/18 07/15/18 1515:00 23:00 07:00 IntakeIntake Total 955 ml 600 ml OutputOutput Total 300 ml 200 ml BalanceBalance 655 ml 400 ml Exam Exam Review of Systems: CONSTITUTIONAL: No fevers, chills. PULMONARY: No sob CARDIOVASCULAR: No chest pain/palpitations GASTROINTESTINAL: No nausea/vomiting. GENITOURINARY: No hematuria/dysuria. MUSCULOSKELETAL: No myagias/arthalgias. PSYCHIATRIC: The patient denies depression. NEUROLOGIC: No weakness Constitutional: alert, oriented Psych: no complaints Head: normocephalic ENMT: mucosa pink and moist Neck: supple, jvd (9 cm water) Respiratory: diminished breath sounds (at bases/B) Cardiovascular: regular rate and rhythm Gastrointestinal: soft, non-tender Musculoskeletal: muscle tone (normal) Extremities: pitting pedal edema (bilateral LE) Labs Result Diagram: 07/15/18 0724 07/15/18 0724 Results 24hrs Laboratory Tests Test 07/14/18 20:55 07/15/18 02:26 07/15/18 07:24 07/15/18 07:57 Bedside Glucose 320 H 258 H 329 H White Blood Count 5.1 # Red Blood Count 5.10 Hemoglobin 13.6 L Hematocrit 41.6 L Mean Corpuscular 81.6 L Volume Mean Corpuscular 26.7 L Hemoglobin Mean Corpuscular 32.7 Hemoglobin Concent Red Cell 14.1 Distribution Width Platelet Count 156 Mean Platelet Volume 9.4 Immature 0.400 Granulocytes % Neutrophils % 58.4 Lymphocytes % 17.1 Monocytes % 7.9 Eosinophils % 15.6 H Basophils % 0.6 Nucleated Red Blood 0.0 Cells % Immature 0.020 Granulocytes # Neutrophils # 3.0 Lymphocytes # 0.9 Monocytes # 0.4 Eosinophils # 0.8 H Basophils # 0.0 Nucleated Red Blood 0.0 Cells # Sodium Level 129 L Potassium Level 4.5 Chloride Level 91 L Carbon Dioxide Level 30 Anion Gap 8 Blood Urea Nitrogen 38 #H Creatinine 1.52 H Est Glomerular 46 L Filtrat Rate mL/min Glucose Level 332 H Calcium Level 8.6 Test 07/15/18 11:43 07/15/18 17:09 Bedside Glucose 351 H 240 H Medications Medications Current Medications Diagnostic Test (Pha) (Accu-Chek) 1 ea 02 XX ; Start 07/14/18 at 02:00 Insulin Aspart (Novolog Insulin Pen) NOVOLOG *MILD* ALGORITHM WITH MEALS BEDTIME SC Last administered on 07/15/18at 17:51; Admin Dose 3 UNIT; Start 07/13/18 at 17:55 Miscellaneous Information 1 ea NOTE XX ; Start 07/13/18 at 14:30 Glucose (Glutose) 15 gm Q15M PRN PO DECREASED GLUCOSE; Start 07/13/18 at 14:30 Glucose (Glutose) 22.5 gm Q15M PRN PO DECREASED GLUCOSE; Start 07/13/18 at 14:30 Dextrose (D50w Syringe) 25 ml Q15M PRN IV DECREASED GLUCOSE; Start 07/13/18 at 14:30 Dextrose (D50w Syringe) 50 ml Q15M PRN IV DECREASED GLUCOSE; Start 07/13/18 at 14:30 Glucagon (Glucagen) 1 mg Q15M PRN IM DECREASED GLUCOSE; Start 07/13/18 at 14:30 Glucose (Glutose) 15 gm Q15M PRN BUCCAL DECREASED GLUCOSE; Start 07/13/18 at 14:30 Lorazepam (Ativan) 0.5 mg Q8H PRN PO .ANXIETY; Start 07/13/18 at 14:30 Ondansetron HCl (Zofran Inj) 4 mg Q6H PRN IV NAUSEA/VOMITING; Start 07/13/18 at 14:30 Aspirin (Aspirin) 81 mg DAILY PO Last administered on 07/15/18 09:06; Admin Dose 81 MG; Start 07/14/18 at 09:00 Acetaminophen (Tylenol Tab) 650 mg Q6H PRN PO .PAIN 1-3 OR TEMP; Start 07/13/18 at 14:30 Acetaminophen/ Hydrocodone Bitart ([place] (5/325)) 1 tab Q6H PRN PO .PAIN 4-6 Last administered on 07/14/18at 20:45; Admin Dose 1 TAB; Start 07/13/18 at 14:30 Zolpidem Tartrate (Ambien) 5 mg QHS PRN PO .INSOMNIA; Start 07/13/18 at 14:30 Docusate Sodium (Colace) 100 mg Q12 PO Last administered on 07/15/18 09:06; Admin Dose 100 MG; Start 07/13/18 at 14:30 Famotidine (Pepcid) 20 mg Q12 PO Last administered on 07/15/18 09:07; Admin Dose 20 MG; Start 07/13/18 at 21:00 Enoxaparin Sodium (Lovenox) 40 mg DAILY SC Last administered on 07/15/18 09:24; Admin Dose 40 MG; Start 07/14/18 at 09:00 Carvedilol (Coreg) 6.25 mg BID PO Last administered on 07/15/18 09:07; Admin Dose 6.25 MG; Start 07/13/18 at 21:00 Dapsone (Dapsone) 25 mg BID PO Last administered on 07/15/18 09:07; Admin Dose 25 MG; Start 07/13/18 at 21:00 EZETIMIBE (Zetia) 10 mg HS PO Last administered on 07/14/18 20:41; Admin Dose 10 MG; Start 07/13/18 at 21:00 Fluticasone/ Vilanterol (Breo Ellipta 200-25 Mcg Inh) 1 inh DAILY INH Last administered on 07/15/18 13:18; Admin Dose 1 INH; Start 07/14/18 at 09:00 Insulin Aspart (Novolog Insulin Pen) 30 unit WITH MEALS SC Last administered on 07/15/18 17:51; Admin Dose 30 UNIT; Start 07/13/18 at 14:30 Pregabalin (Lyrica) 100 mg TID PO Last administered on 07/15/18 13:18; Admin Dose 100 MG; Start 07/13/18 at 16:15 Losartan Potassium (Cozaar) 100 mg DAILY PO Last administered on 07/15/18 09:07; Admin Dose 100 MG; Start 07/14/18 at 09:00 Fish Oil (Fish Oil) 2,000 mg BID PO Last administered on 07/15/18 13:18; Admin Dose 2,000 MG; Start 07/13/18 at 21:00 Pantoprazole (Protonix Tab) 40 mg DAILY@0600 PO Last administered on 07/15/18 06:45; Admin Dose 40 MG; Start 07/14/18 at 06:00 Atorvastatin Calcium (Lipitor) 40 mg QHS PO Last administered on 07/14/18 20:41; Admin Dose 40 MG; Start 07/13/18 at 21:00 Diagnostic Test (Pha) (Accu-Chek) 1 ea AC MEALS AND BEDTIME XX ; Start 07/13/18 at 17:25 Benazepril HCl (Lotensin) 10 mg DAILY PO Last administered on 07/15/18 09:07; Admin Dose 10 MG; Start 07/14/18 at 09:00 Insulin Glargine (Lantus) 55 units QHS SC Last administered on 07/14/18 21:09; Admin Dose 55 UNITS; Start 07/13/18 at 21:00 Metformin HCl (Glucophage) 500 mg WITH DINNER PO Last administered on 07/15/18 17:44; Admin Dose 500 MG; Start 07/15/18 at 17:55 HERRERA HOFF July 15, 2018 20:39
[2018-07-15] MEDS: ATORVASTATIN 40 MG TAB PO SCH (21:00)
[2018-07-15] MEDS: EZETIMIBE 10 MG TAB PO SCH (21:00)
[2018-07-15] MEDS: HYDROCODONE/APAP (5/325) TAB PO PRN (21:01)
[2018-07-15] MEDS: INSULIN GLARGINE [LANTus] (100 UNITS/ML) SYG SC SCH (21:44)
[2018-07-16] VITALS (9 sets, daily range): BP systolic 98–160; BP diastolic 55–83; PULSE 68–80; RESP 18–20
[2018-07-16] MEDS: ACCU-CHEK XX SCH ×5 (02:00→21:00)
[2018-07-16] MEDS: PANTOPRAZOLE (EC) 40 MG TAB PO SCH (05:47)
[2018-07-16] MEDS: DAPSONE 25 MG TABLET PO SCH ×2 (08:40→21:22)
[2018-07-16] MEDS: LOSARTAN 50 MG TAB PO SCH (08:40)
[2018-07-16] MEDS: FISH OIL 1,000 MG CAP PO SCH ×2 (08:40→21:22)
[2018-07-16] MEDS: FAMOTIDINE 20 MG TAB PO SCH ×2 (08:41→21:22)
[2018-07-16] MEDS: METOPROLOL (XL) 50 MG TAB PO SCH (08:41)
[2018-07-16] MEDS: ASPIRIN 81 MG TAB PO SCH (08:41)
[2018-07-16] MEDS: FLUTICASONE/VILANTEROL 200-25 INH DEVICE INH SCH (08:41)
[2018-07-16] MEDS: DOCUSATE SODIUM 100 MG CAP PO SCH ×2 (08:44→21:55)
[2018-07-16] MEDS: PREGABALIN 100 MG CAP PO SCH ×3 (08:45→21:28)
[2018-07-16] MEDS: ENOXAPARIN 40 MG/0.4 ML SYG SC SCH (08:50)
[2018-07-16] MEDS: INSULIN ASPART [NOVOLOG] 3 ML PEN SC SCH ×9 (08:54→21:26)
[2018-07-16] MEDS: HYDROCODONE/APAP (5/325) TAB PO PRN ×2 (10:26→21:28)
[2018-07-16] MEDS: LINAGLIPTIN 5 MG TABLET PO SCH (12:51)
--- NOTE | 2018-07-16 12:57 | CONS ---
Assessment/Plan Assessment/Plan Problems: (1) Diabetes mellitus type 2 in obese Status: Chronic Comment: Sugars continue to be above what we had as a goal. I am making adjustments to his insulin in an aggressive fashion to try and bring him under control. This could be done as an outpatient. However as long as he is here I will continue to modify his regimen (2) Systolic and diastolic CHF, acute on chronic Status: Chronic Comment: Strongly agree with the changes made by cardiology for management of this issue. (3) Cirrhosis of liver Status: Chronic Comment: Noted. Careful usage of medications. Please note this is the reason why I am not using full dose metformin Qualifiers: Hepatic cirrhosis type: unspecified hepatic cirrhosis Ascites presence: without ascites Qualified Codes: K74.60 - Unspecified cirrhosis of liver (4) Morbid obesity with BMI of 40.0-44.9, adult Status: Chronic Comment: Calorie restriction diet (5) Obstructive sleep apnea of adult Status: Chronic Comment: Noted. (6) COPD exacerbation Status: Acute Comment: On treatment Consultation Date/Type/Reason Admit Date/Time July 13, 2018 at 07:59 Initial Consult Date 07/15/18 Type of Consult Endocrinology Reason for Consultation Diabetes mellitus type 2; obesity; CHF systolic and diastolic; cirrhosis Requesting Provider: CB MILLS Date/Time of Note DATE: 07/16/18 TIME: 12:54 24 HR Interval Summary Free Text/Dictation Patient reports that he is feeling relatively well. Constitutional: no complaints Detailed Summary Respiratory: no complaints Cardiovascular: no complaints Endocrine: no complaints Exam/Review of Systems Exam Vitals Vital Signs Date Temp Pulse Resp B/P (MAP) Pulse Ox O2 O2 Flow FiO2 Time Delivery Rate 07/16/18 98.2 72 18 131/63 94 11:27 (85) 07/16/18 1.0 06:05 07/16/18 Nasal 05:56 Cannula Intake and Output 07/15/18 07/15/18 07/16/18 1515:00 23:00 07:00 IntakeIntake Total 850 ml 1500 ml OutputOutput Total 1050 ml 1150 ml BalanceBalance -200 ml 350 ml Constitutional: alert, oriented, obese Respiratory: clear to auscultation, normal air movement Cardiovascular: regular rate and rhythm, nl pulses Gastrointestinal: soft, nl liver, spleen, non-tender, other (Obese abdomen I am not able to appreciate the enlargement of the spleen identified on CT scan) Results Result Diagram: 07/16/18 0638 07/16/18 0638 Results 24hrs Laboratory Tests Test 07/15/18 17:09 07/15/18 21:31 07/16/18 06:38 07/16/18 07:49 Bedside Glucose 240 H 222 H 324 H White Blood Count 6.4 # Red Blood Count 4.82 Hemoglobin 13.0 L Hematocrit 39.9 L Mean Corpuscular 82.8 Volume Mean Corpuscular 27.0 L Hemoglobin Mean Corpuscular 32.6 Hemoglobin Concent Red Cell 14.2 Distribution Width Platelet Count 141 Mean Platelet Volume 9.6 Immature 0.300 Granulocytes % Neutrophils % 56.1 Lymphocytes % 19.2 Monocytes % 9.3 Eosinophils % 14.6 H Basophils % 0.5 Nucleated Red Blood 0.0 Cells % Immature 0.020 Granulocytes # Neutrophils # 3.6 Lymphocytes # 1.2 Monocytes # 0.6 Eosinophils # 0.9 H Basophils # 0.0 Nucleated Red Blood 0.0 Cells # Sodium Level 130 L Potassium Level 4.6 Chloride Level 94 L Carbon Dioxide Level 30 Anion Gap 6 Blood Urea Nitrogen 43 H Creatinine 1.20 Est Glomerular > 60 Filtrat Rate mL/min Glucose Level 366 H Calcium Level 8.4 Magnesium Level 1.8 Test 07/16/18 11:53 Bedside Glucose 339 H Medications Medication Current Medications Diagnostic Test (Pha) (Accu-Chek) 1 ea 02 XX ; Start 07/14/18 at 02:00 Insulin Aspart (Novolog Insulin Pen) NOVOLOG *MILD* ALGORITHM WITH MEALS BEDTIME SC Last administered on 07/16/18at 12:17; Admin Dose 5 UNIT; Start 07/13/18 at 17:55 Miscellaneous Information 1 ea NOTE XX ; Start 07/13/18 at 14:30 Glucose (Glutose) 15 gm Q15M PRN PO DECREASED GLUCOSE; Start 07/13/18 at 14:30 Glucose (Glutose) 22.5 gm Q15M PRN PO DECREASED GLUCOSE; Start 07/13/18 at 14:30 Dextrose (D50w Syringe) 25 ml Q15M PRN IV DECREASED GLUCOSE; Start 07/13/18 at 14:30 Dextrose (D50w Syringe) 50 ml Q15M PRN IV DECREASED GLUCOSE; Start 07/13/18 at 14:30 Glucagon (Glucagen) 1 mg Q15M PRN IM DECREASED GLUCOSE; Start 07/13/18 at 14:30 Glucose (Glutose) 15 gm Q15M PRN BUCCAL DECREASED GLUCOSE; Start 07/13/18 at 14:30 Lorazepam (Ativan) 0.5 mg Q8H PRN PO .ANXIETY; Start 07/13/18 at 14:30 Ondansetron HCl (Zofran Inj) 4 mg Q6H PRN IV NAUSEA/VOMITING; Start 07/13/18 at 14:30 Aspirin (Aspirin) 81 mg DAILY PO Last administered on 07/16/18 08:41; Admin Dose 81 MG; Start 07/14/18 at 09:00 Acetaminophen (Tylenol Tab) 650 mg Q6H PRN PO .PAIN 1-3 OR TEMP; Start 07/13/18 at 14:30 Acetaminophen/ Hydrocodone Bitart ([place] (5/325)) 1 tab Q6H PRN PO .PAIN 4-6 Last administered on 07/16/18 10:26; Admin Dose 1 TAB; Start 07/13/18 at 14:30 Zolpidem Tartrate (Ambien) 5 mg QHS PRN PO .INSOMNIA; Start 07/13/18 at 14:30 Docusate Sodium (Colace) 100 mg Q12 PO Last administered on 07/16/18 08:44; Admin Dose 100 MG; Start 07/13/18 at 14:30 Famotidine (Pepcid) 20 mg Q12 PO Last administered on 07/16/18 08:41; Admin Dose 20 MG; Start 07/13/18 at 21:00 Enoxaparin Sodium (Lovenox) 40 mg DAILY SC Last administered on 07/16/18 08:50; Admin Dose 40 MG; Start 07/14/18 at 09:00 Dapsone (Dapsone) 25 mg BID PO Last administered on 07/16/18 08:40; Admin Dose 25 MG; Start 07/13/18 at 21:00 EZETIMIBE (Zetia) 10 mg HS PO Last administered on 07/15/18 21:00; Admin Dose 10 MG; Start 07/13/18 at 21:00 Fluticasone/ Vilanterol (Breo Ellipta 200-25 Mcg Inh) 1 inh DAILY INH Last administered on 07/16/18 08:41; Admin Dose 1 INH; Start 07/14/18 at 09:00 Pregabalin (Lyrica) 100 mg TID PO Last administered on 07/16/18 12:51; Admin Dose 100 MG; Start 07/13/18 at 16:15 Losartan Potassium (Cozaar) 100 mg DAILY PO Last administered on 07/16/18 08:40; Admin Dose 100 MG; Start 07/14/18 at 09:00 Fish Oil (Fish Oil) 2,000 mg BID PO Last administered on 07/16/18 08:40; Admin Dose 2,000 MG; Start 07/13/18 at 21:00 Pantoprazole (Protonix Tab) 40 mg DAILY@0600 PO Last administered on 07/16/18 05:47; Admin Dose 40 MG; Start 07/14/18 at 06:00 Atorvastatin Calcium (Lipitor) 40 mg QHS PO Last administered on 07/15/18 21:00; Admin Dose 40 MG; Start 07/13/18 at 21:00 Metformin HCl (Glucophage) 500 mg WITH DINNER PO Last administered on 07/15/18 17:44; Admin Dose 500 MG; Start 07/15/18 at 17:55 Metoprolol Succinate (Toprol Xl) 50 mg DAILY PO Last administered on 07/16/18 08:41; Admin Dose 50 MG; Start 07/16/18 at 09:00 Linagliptin (Tradjenta) 5 mg DAILY PO Last administered on 07/16/18 12:51; Admin Dose 5 MG; Start 07/16/18 at 12:00 Diagnostic Test (Pha) (Accu-Chek) 1 ea AC MEALS AND BEDTIME XX ; Start 07/16/18 at 17:25 Insulin Aspart (Novolog Insulin Pen) 36 unit WITH MEALS SC ; Start 07/16/18 at 17:55; Status UNV Insulin Glargine (Lantus) 42 units BID SC ; Start 07/16/18 at 21:00; Status UNV Insulin Glargine (Lantus) 12 units ONCE ONCE SC ; Start 07/16/18 at 13:00; Stop 07/16/18 at 13:01; Status MIGUEL ANGEL SALAZAR MD July 16, 2018 12:57
[2018-07-16] MEDS ORDERED: INSULIN GLARGINE [LANTus] (100 UNITS/ML) SYG SC ONE (14:00)
--- NOTE | 2018-07-16 16:27 | PN ---
Date/Time of Note Date/Time of Note DATE: 07/16/18 TIME: 16:24 Assessment/Plan VTE Prophylaxis Risk score (from Nsg)>0 risk: 3 Pharmacological prophylaxis: LMWH Lines/Catheters IV Catheter Type (from Nrsg): [place] Assessment/Plan Hospital Course S: no new complaints, no more chest pain, thinks he may have had a stroke that has resolved O : General: A&O x3, answering questions appropriately, obese HEENT: NC/ AT. PERRL. EOM intact Neck: supple CVS: S1, S2, RRR. no murmurs. no pain on chest wall palpation Lungs: CTA b/l. no wheezing or rhonchi Abd: soft, nontender, +BS Ext: moving all extremities skin: no rashes assessment and plan: 67-year-old male with known COPD on home oxygen, known coronary artery disease status post MO and known cardiomyopathy who presents with worsening shortness of breath and chest pressure admitted and managed as follows: 1. Chest pain : s/p ACS R/O 2. Known coronary artery disease status post PCI 3. CHF exacerbation, acute on chronic, systolic 4. Acute on chronic renal respiratory insufficiency 5. Known COPD on home oxygen 6. Morbid obesity 7. Dyslipidemia with hypertriglyceridemia 8. Diabetes mellitus with poor home control 9. TIA dispo : Patient still with very poorly controlled blood sugar despite high insulin dosing as well as pseudohyponatremia likely secondary to hypoglycemia. Result Diagram: 07/16/18 0638 07/16/18 0638 Results 24hrs Laboratory Tests Test 07/15/18 17:09 07/15/18 21:31 07/16/18 06:38 07/16/18 07:49 Bedside Glucose 240 H 222 H 324 H White Blood Count 6.4 # Red Blood Count 4.82 Hemoglobin 13.0 L Hematocrit 39.9 L Mean Corpuscular 82.8 Volume Mean Corpuscular 27.0 L Hemoglobin Mean Corpuscular 32.6 Hemoglobin Concent Red Cell 14.2 Distribution Width Platelet Count 141 Mean Platelet Volume 9.6 Immature 0.300 Granulocytes % Neutrophils % 56.1 Lymphocytes % 19.2 Monocytes % 9.3 Eosinophils % 14.6 H Basophils % 0.5 Nucleated Red Blood 0.0 Cells % Immature 0.020 Granulocytes # Neutrophils # 3.6 Lymphocytes # 1.2 Monocytes # 0.6 Eosinophils # 0.9 H Basophils # 0.0 Nucleated Red Blood 0.0 Cells # Sodium Level 130 L Potassium Level 4.6 Chloride Level 94 L Carbon Dioxide Level 30 Anion Gap 6 Blood Urea Nitrogen 43 H Creatinine 1.20 Est Glomerular > 60 Filtrat Rate mL/min Glucose Level 366 H Calcium Level 8.4 Magnesium Level 1.8 Test 07/16/18 11:53 Bedside Glucose 339 H Exam/Review of Systems Exam Vitals Vital Signs Date Temp Pulse Resp B/P (MAP) Pulse Ox O2 O2 Flow FiO2 Time Delivery Rate 07/16/18 97.7 69 19 124/71 96 Room Air 15:54 (88) 07/16/18 1.0 06:05 Intake and Output 07/15/18 07/15/18 07/16/18 1515:00 23:00 07:00 IntakeIntake Total 850 ml 1500 ml OutputOutput Total 1050 ml 1150 ml BalanceBalance -200 ml 350 ml Results Results 24hrs Laboratory Tests Test 07/15/18 17:09 07/15/18 21:31 07/16/18 06:38 07/16/18 07:49 Bedside Glucose 240 H 222 H 324 H White Blood Count 6.4 # Red Blood Count 4.82 Hemoglobin 13.0 L Hematocrit 39.9 L Mean Corpuscular 82.8 Volume Mean Corpuscular 27.0 L Hemoglobin Mean Corpuscular 32.6 Hemoglobin Concent Red Cell 14.2 Distribution Width Platelet Count 141 Mean Platelet Volume 9.6 Immature 0.300 Granulocytes % Neutrophils % 56.1 Lymphocytes % 19.2 Monocytes % 9.3 Eosinophils % 14.6 H Basophils % 0.5 Nucleated Red Blood 0.0 Cells % Immature 0.020 Granulocytes # Neutrophils # 3.6 Lymphocytes # 1.2 Monocytes # 0.6 Eosinophils # 0.9 H Basophils # 0.0 Nucleated Red Blood 0.0 Cells # Sodium Level 130 L Potassium Level 4.6 Chloride Level 94 L Carbon Dioxide Level 30 Anion Gap 6 Blood Urea Nitrogen 43 H Creatinine 1.20 Est Glomerular > 60 Filtrat Rate mL/min Glucose Level 366 H Calcium Level 8.4 Magnesium Level 1.8 Test 07/16/18 11:53 Bedside Glucose 339 H Medications Medication Current Medications Diagnostic Test (Pha) (Accu-Chek) 1 ea 02 XX ; Start 07/14/18 at 02:00 Insulin Aspart (Novolog Insulin Pen) NOVOLOG *MILD* ALGORITHM WITH MEALS BEDTIME SC Last administered on 07/16/18at 12:17; Admin Dose 5 UNIT; Start 07/13/18 at 17:55 Miscellaneous Information 1 ea NOTE XX ; Start 07/13/18 at 14:30 Glucose (Glutose) 15 gm Q15M PRN PO DECREASED GLUCOSE; Start 07/13/18 at 14:30 Glucose (Glutose) 22.5 gm Q15M PRN PO DECREASED GLUCOSE; Start 07/13/18 at 14:30 Dextrose (D50w Syringe) 25 ml Q15M PRN IV DECREASED GLUCOSE; Start 07/13/18 at 14:30 Dextrose (D50w Syringe) 50 ml Q15M PRN IV DECREASED GLUCOSE; Start 07/13/18 at 14:30 Glucagon (Glucagen) 1 mg Q15M PRN IM DECREASED GLUCOSE; Start 07/13/18 at 14:30 Glucose (Glutose) 15 gm Q15M PRN BUCCAL DECREASED GLUCOSE; Start 07/13/18 at 14:30 Lorazepam (Ativan) 0.5 mg Q8H PRN PO .ANXIETY; Start 07/13/18 at 14:30 Ondansetron HCl (Zofran Inj) 4 mg Q6H PRN IV NAUSEA/VOMITING; Start 07/13/18 at 14:30 Aspirin (Aspirin) 81 mg DAILY PO Last administered on 07/16/18at 08:41; Admin Dose 81 MG; Start 07/14/18 at 09:00 Acetaminophen (Tylenol Tab) 650 mg Q6H PRN PO .PAIN 1-3 OR TEMP; Start 07/13/18 at 14:30 Acetaminophen/ Hydrocodone Bitart ([place] (5/325)) 1 tab Q6H PRN PO .PAIN 4-6 Last administered on 07/16/18at 10:26; Admin Dose 1 TAB; Start 07/13/18 at 14:30 Zolpidem Tartrate (Ambien) 5 mg QHS PRN PO .INSOMNIA; Start 07/13/18 at 14:30 Docusate Sodium (Colace) 100 mg Q12 PO Last administered on 07/16/18at 08:44; Admin Dose 100 MG; Start 07/13/18 at 14:30 Famotidine (Pepcid) 20 mg Q12 PO Last administered on 07/16/18 08:41; Admin Dose 20 MG; Start 07/13/18 at 21:00 Enoxaparin Sodium (Lovenox) 40 mg DAILY SC Last administered on 07/16/18 08:50; Admin Dose 40 MG; Start 07/14/18 at 09:00 Dapsone (Dapsone) 25 mg BID PO Last administered on 07/16/18 08:40; Admin Dose 25 MG; Start 07/13/18 at 21:00 EZETIMIBE (Zetia) 10 mg HS PO Last administered on 07/15/18 21:00; Admin Dose 10 MG; Start 07/13/18 at 21:00 Fluticasone/ Vilanterol (Breo Ellipta 200-25 Mcg Inh) 1 inh DAILY INH Last administered on 07/16/18 08:41; Admin Dose 1 INH; Start 07/14/18 at 09:00 Pregabalin (Lyrica) 100 mg TID PO Last administered on 07/16/18 12:51; Admin Dose 100 MG; Start 07/13/18 at 16:15 Losartan Potassium (Cozaar) 100 mg DAILY PO Last administered on 07/16/18 08:40; Admin Dose 100 MG; Start 07/14/18 at 09:00 Fish Oil (Fish Oil) 2,000 mg BID PO Last administered on 07/16/18 08:40; Admin Dose 2,000 MG; Start 07/13/18 at 21:00 Pantoprazole (Protonix Tab) 40 mg DAILY@0600 PO Last administered on 07/16/18 05:47; Admin Dose 40 MG; Start 07/14/18 at 06:00 Atorvastatin Calcium (Lipitor) 40 mg QHS PO Last administered on 07/15/18 21:00; Admin Dose 40 MG; Start 07/13/18 at 21:00 Metformin HCl (Glucophage) 500 mg WITH DINNER PO Last administered on 07/15/18 17:44; Admin Dose 500 MG; Start 07/15/18 at 17:55 Metoprolol Succinate (Toprol Xl) 50 mg DAILY PO Last administered on 07/16/18 08:41; Admin Dose 50 MG; Start 07/16/18 at 09:00 Linagliptin (Tradjenta) 5 mg DAILY PO Last administered on 5/30/19at 12:51; Admin Dose 5 MG; Start 07/16/18 at 12:00 Diagnostic Test (Pha) (Accu-Chek) 1 ea AC MEALS AND BEDTIME XX ; Start 07/16/18 at 17:25 Insulin Aspart (Novolog Insulin Pen) 36 unit WITH MEALS SC ; Start 07/16/18 at 17:55 Insulin Glargine (Lantus) 42 units BID SC ; Start 07/16/18 at 21:00 CB MILLS July 16, 2018 16:27
[2018-07-16] MEDS: metFORMIN 500 MG TAB PO SCH (17:48)
--- NOTE | 2018-07-16 18:57 | CONS ---
Assessment/Plan Assessment/Plan Hospital Course (Demo Recall) IMPRESSION: 1. Congestive heart failure exacerbation by previous stress and echo be systolic and acute on chronic.-neg trop x 3 2. Hypertension. 3. Dyslipidemia. 4. Abnormal electrocardiogram, assess for acute coronary syndrome. 5. Remote tobacco. 6. Chronic obstructive pulmonary disease. 7. Diabetes mellitus. 8. Hyperkalemia. 9. Mildly increased BNP. 10. acute renal failure Recc: -Tele -Continue BB/and ACEI with uptitration as necessary and may consider afterload reduction with hydralazine additionally during this period of acute renal failure with business consultant in flux -Would not uses ARB/ACEI combination at this time as likely to lead to more adverse drug related side effects with little improvement in hard outcomes in treatment of systolic heart failure -Now on B1 selective BB so as less likley to provoke bronchospasm and sob -Follow volume status/creatnine closely -Follow blood sugars closely with ongoing adjustment of insulin/metformin and close f/u by endocrinology Consultation Date/Type/Reason Admit Date/Time July 13, 2018 at 07:59 Initial Consult Date 07/15/18 Type of Consult Cardiology Reason for Consultation CHF Requesting Provider: CB MILLS Date/Time of Note DATE: 07/16/18 TIME: 18:51 Exam/Review of Systems Vital Signs Vitals Vital Signs Date Temp Pulse Resp B/P (MAP) Pulse Ox O2 O2 Flow FiO2 Time Delivery Rate 07/16/18 68 16:00 07/16/18 97.7 19 124/71 96 Room Air 15:54 (88) 07/16/18 1.0 07:00 Intake and Output 07/15/18 07/15/18 07/16/18 1515:00 23:00 07:00 IntakeIntake Total 850 ml 1500 ml OutputOutput Total 1050 ml 1150 ml BalanceBalance -200 ml 350 ml Exam Exam Review of Systems: CONSTITUTIONAL: No fevers, chills. PULMONARY: No sob CARDIOVASCULAR: No chest pain/palpitations GASTROINTESTINAL: No nausea/vomiting. GENITOURINARY: No hematuria/dysuria. MUSCULOSKELETAL: No myagias/arthalgias. PSYCHIATRIC: The patient denies depression. NEUROLOGIC: No weakness Constitutional: alert, oriented Psych: no complaints Head: normocephalic ENMT: mucosa pink and moist Neck: supple, jvd (9 cm water) Respiratory: diminished breath sounds Cardiovascular: regular rate and rhythm Gastrointestinal: soft, non-tender Musculoskeletal: muscle tone (normal) Extremities: edema (none) Neurological: other (No focal deficits) Labs Result Diagram: 07/16/18 0638 07/16/18 0638 Results 24hrs Laboratory Tests Test 07/15/18 21:31 07/16/18 06:38 07/16/18 07:49 07/16/18 11:53 Bedside Glucose 222 H 324 H 339 H White Blood Count 6.4 # Red Blood Count 4.82 Hemoglobin 13.0 L Hematocrit 39.9 L Mean Corpuscular 82.8 Volume Mean Corpuscular 27.0 L Hemoglobin Mean Corpuscular 32.6 Hemoglobin Concent Red Cell 14.2 Distribution Width Platelet Count 141 Mean Platelet Volume 9.6 Immature 0.300 Granulocytes % Neutrophils % 56.1 Lymphocytes % 19.2 Monocytes % 9.3 Eosinophils % 14.6 H Basophils % 0.5 Nucleated Red Blood 0.0 Cells % Immature 0.020 Granulocytes # Neutrophils # 3.6 Lymphocytes # 1.2 Monocytes # 0.6 Eosinophils # 0.9 H Basophils # 0.0 Nucleated Red Blood 0.0 Cells # Sodium Level 130 L Potassium Level 4.6 Chloride Level 94 L Carbon Dioxide Level 30 Anion Gap 6 Blood Urea Nitrogen 43 H Creatinine 1.20 Est Glomerular > 60 Filtrat Rate mL/min Glucose Level 366 H Calcium Level 8.4 Magnesium Level 1.8 Test 07/16/18 17:02 Bedside Glucose 241 H Medications Medications Current Medications Diagnostic Test (Pha) (Accu-Chek) 1 ea 02 XX ; Start 07/14/18 at 02:00 Insulin Aspart (Novolog Insulin Pen) NOVOLOG *MILD* ALGORITHM WITH MEALS BEDTIME SC Last administered on 07/16/18at 17:55; Admin Dose 3 UNIT; Start 07/13/18 at 17:55 Miscellaneous Information 1 ea NOTE XX ; Start 07/13/18 at 14:30 Glucose (Glutose) 15 gm Q15M PRN PO DECREASED GLUCOSE; Start 07/13/18 at 14:30 Glucose (Glutose) 22.5 gm Q15M PRN PO DECREASED GLUCOSE; Start 07/13/18 at 14:30 Dextrose (D50w Syringe) 25 ml Q15M PRN IV DECREASED GLUCOSE; Start 07/13/18 at 14:30 Dextrose (D50w Syringe) 50 ml Q15M PRN IV DECREASED GLUCOSE; Start 07/13/18 at 14:30 Glucagon (Glucagen) 1 mg Q15M PRN IM DECREASED GLUCOSE; Start 07/13/18 at 14:30 Glucose (Glutose) 15 gm Q15M PRN BUCCAL DECREASED GLUCOSE; Start 07/13/18 at 14:30 Lorazepam (Ativan) 0.5 mg Q8H PRN PO .ANXIETY; Start 07/13/18 at 14:30 Ondansetron HCl (Zofran Inj) 4 mg Q6H PRN IV NAUSEA/VOMITING; Start 07/13/18 at 14:30 Aspirin (Aspirin) 81 mg DAILY PO Last administered on 07/16/18 08:41; Admin Dose 81 MG; Start 07/14/18 at 09:00 Acetaminophen (Tylenol Tab) 650 mg Q6H PRN PO .PAIN 1-3 OR TEMP; Start 07/13/18 at 14:30 Acetaminophen/ Hydrocodone Bitart ([place] (5/325)) 1 tab Q6H PRN PO .PAIN 4-6 Last administered on 07/16/18 10:26; Admin Dose 1 TAB; Start 07/13/18 at 14:30 Zolpidem Tartrate (Ambien) 5 mg QHS PRN PO .INSOMNIA; Start 07/13/18 at 14:30 Docusate Sodium (Colace) 100 mg Q12 PO Last administered on 07/16/18 08:44; Admin Dose 100 MG; Start 07/13/18 at 14:30 Famotidine (Pepcid) 20 mg Q12 PO Last administered on 07/16/18 08:41; Admin Dose 20 MG; Start 07/13/18 at 21:00 Enoxaparin Sodium (Lovenox) 40 mg DAILY SC Last administered on 07/16/18 08:50; Admin Dose 40 MG; Start 07/14/18 at 09:00 Dapsone (Dapsone) 25 mg BID PO Last administered on 07/16/18 08:40; Admin Dose 25 MG; Start 07/13/18 at 21:00 EZETIMIBE (Zetia) 10 mg HS PO Last administered on 07/15/18 21:00; Admin Dose 10 MG; Start 07/13/18 at 21:00 Fluticasone/ Vilanterol (Breo Ellipta 200-25 Mcg Inh) 1 inh DAILY INH Last administered on 07/16/18 08:41; Admin Dose 1 INH; Start 07/14/18 at 09:00 Pregabalin (Lyrica) 100 mg TID PO Last administered on 07/16/18 12:51; Admin Dose 100 MG; Start 07/13/18 at 16:15 Losartan Potassium (Cozaar) 100 mg DAILY PO Last administered on 07/16/18 08:40; Admin Dose 100 MG; Start 07/14/18 at 09:00 Fish Oil (Fish Oil) 2,000 mg BID PO Last administered on 07/16/18 08:40; Admin Dose 2,000 MG; Start 07/13/18 at 21:00 Pantoprazole (Protonix Tab) 40 mg DAILY@0600 PO Last administered on 07/16/18 05:47; Admin Dose 40 MG; Start 07/14/18 at 06:00 Atorvastatin Calcium (Lipitor) 40 mg QHS PO Last administered on 07/15/18 21:00; Admin Dose 40 MG; Start 07/13/18 at 21:00 Metformin HCl (Glucophage) 500 mg WITH DINNER PO Last administered on 07/16/18 17:48; Admin Dose 500 MG; Start 07/15/18 at 17:55 Metoprolol Succinate (Toprol Xl) 50 mg DAILY PO Last administered on 07/16/18 08:41; Admin Dose 50 MG; Start 07/16/18 at 09:00 Linagliptin (Tradjenta) 5 mg DAILY PO Last administered on 07/16/18 12:51; Admin Dose 5 MG; Start 07/16/18 at 12:00 Diagnostic Test (Pha) (Accu-Chek) 1 ea AC MEALS AND BEDTIME XX ; Start 07/16/18 at 17:25 Insulin Aspart (Novolog Insulin Pen) 36 unit WITH MEALS SC Last administered on 07/16/18 17:55; Admin Dose 36 UNIT; Start 07/16/18 at 17:55 Insulin Glargine (Lantus) 42 units BID SC ; Start 07/16/18 at 21:00 HRERERA HOFF July 16, 2018 18:57
[2018-07-16] MEDS: INSULIN GLARGINE [LANTus] (100 UNITS/ML) SYG SC SCH (21:00)
[2018-07-16] MEDS ORDERED: INSULIN GLARGINE [LANTus] (100 UNITS/ML) SYG SC SCH (21:00)
[2018-07-16] MEDS: EZETIMIBE 10 MG TAB PO SCH (21:22)
[2018-07-16] MEDS: ATORVASTATIN 40 MG TAB PO SCH (21:22)
[2018-07-17] MEDS: ACCU-CHEK XX SCH ×3 (02:00→11:30)
[2018-07-17 02:45] VITALS: BP 120/51; PULSE 77; RESP 16
[2018-07-17] MEDS: PANTOPRAZOLE (EC) 40 MG TAB PO SCH (06:13)
[2018-07-17 08:16] VITALS: BP 154/71; PULSE 74; RESP 18
[2018-07-17] MEDS: INSULIN ASPART [NOVOLOG] 3 ML PEN SC SCH ×4 (08:26→12:18)
[2018-07-17] MEDS: FAMOTIDINE 20 MG TAB PO SCH (08:32)
[2018-07-17] MEDS: ASPIRIN 81 MG TAB PO SCH (08:32)
[2018-07-17] MEDS: LINAGLIPTIN 5 MG TABLET PO SCH (08:32)
[2018-07-17] MEDS: DOCUSATE SODIUM 100 MG CAP PO SCH (08:32)
[2018-07-17] MEDS: FISH OIL 1,000 MG CAP PO SCH (08:33)
[2018-07-17] MEDS: LOSARTAN 50 MG TAB PO SCH (08:33)
[2018-07-17] MEDS: FLUTICASONE/VILANTEROL 200-25 INH DEVICE INH SCH (08:34)
[2018-07-17] MEDS: METOPROLOL (XL) 50 MG TAB PO SCH (08:34)
[2018-07-17] MEDS: DAPSONE 25 MG TABLET PO SCH (08:34)
[2018-07-17] MEDS: INSULIN GLARGINE [LANTus] (100 UNITS/ML) SYG SC SCH (08:37)
[2018-07-17] MEDS: ENOXAPARIN 40 MG/0.4 ML SYG SC SCH (08:37)
[2018-07-17] MEDS: PREGABALIN 100 MG CAP PO SCH ×3 (09:00→12:20)
[2018-07-17] MEDS ORDERED: LINA5TAB PO (13:37)
[2018-07-17] MEDS ORDERED: METO-319 PO (13:37)
[2018-07-17] MEDS ORDERED: INSU100I33 SC (13:39)
--- NOTE | 2018-07-17 13:42 | PDOCDIS ---
Discharge Instructions CONDITION [id number] Patient Condition: [id number] Stable HOME CARE INSTRUCTIONS: [id number] Your diet recommendation is: [id number] strict diabetic diet [id number] calories daily FOLLOW UP/APPOINTMENTS Follow-up Plan Your diabetes is still not very well controlled. Please make sure you follow-up with the jinriksha driver. The doctor who saw you when you were here is Dr. Hanson. His office information is as below. Please call to make a follow-up appointment, otherwise have your primary care doctor refer you to an endo crinologist. It is important that you maintain a diabetic diet and try to stay away from processed sugar. Diabetes is a very debilitating disease, but it is manageable if able to control your sugars. Please stay in close touch with your primary care doctor as well as your jinriksha driver. I have also arranged for home health for a nurse to come and help you with your diabetic management at home. Name, Degree : Harsha Hanson MD Specialty: Endocrinology Office Address : [address] [place] [address] Office Office CB MILLS July 17, 2018 13:42
--- NOTE | 2018-07-17 23:58 | DS ---
Date/Time of Note Date/Time of Note DATE: 07/17/18 TIME: 23:53 Discharge Summary Admission/Discharge Info Admit Date/Time July 13, 2018 at 07:59 Discharge Date/Time July 17, 2018 at 14:45 Discharge Diagnosis 67-year-old male with known COPD on home oxygen, known coronary artery disease status post MT and known cardiomyopathy who presents with worsening shortness of breath and chest pressure admitted and managed as follows: 1. Chest pain : s/p ACS R/O 2. Known coronary artery disease status post PCI 3. CHF exacerbation, acute on chronic, systolic 4. Acute on chronic renal respiratory insufficiency 5. Known COPD on home oxygen 6. Morbid obesity 7. Dyslipidemia with hypertriglyceridemia 8. Diabetes mellitus with poor home control 9. Multiple TIA 10. Pseudohyponatremia from hyperglycemia 11. Chronic skin d/o on Dapsone . Patient Condition: Stable Consults Cardiology: Pablo Up MD Endocrinology: Harsha Hanson . Hx of Present Illness This is 67-year-old male with a past medical history of coronary artery disease hypertension, CHF, insulin-dependent diabetes mellitus. The patient is on home oxygen. He states he utilizes roughly 2 L 24 hours a day. Over the past 24 hours the patient has had difficulty breathing with shortness of breath. He states his shortness of breath is at rest. He also developed chest pressure. He states the chest pressure lasted for roughly 1 hour. He took nitroglycerin and the chest pain completely resolved. This occurred yesterday roughly 12 hours prior to arrival. When he awoke this morning the chest pain returned. He took another nitroglycerin and the chest pain completely resolved. The patient lives alone and a neighbor came over to check on him and phone 911 as the patient looked as though he was having a difficult time breathing. He denies any recent travel. He denies any swelling of his lower extremities. States his been compliant with all of his medications. Hospital Course 67-year-old male who had presented to the emergency room with shortness of breath and chest pressure was admitted and managed for CHF exacerbation and ACS rule out. During the course of his hospitalization, patient also reported facial numbness and concerned that he might be having a stroke. Regarding his cardiac symptoms, he was followed in house by cardiology, he did undergo a 2D echo that showed stage I diastolic dysfunction and ejection fraction of 45% without any significant valvular abnormalities. Regarding his facial numbness: The symptoms resolved, patient states he has had multiple TIAs in the past, CT of the brain showed no acute intracranial process and carotid Dopplers showed no hemodynamically significant disease The patient does have chronic skin condition for which she did not he did not know the actual diagnosis but he was taking dapsone therapy for this and he was under the care of. Gut Dropper as outpatient. There is not this is relevant is because patient had severe hypoglycemia that was difficult to control while in-house and he was attributing it to this medication. Endocrinology consultation was obtained. Endo did not fill the dapsone was causing his poorly controlled diabetes a CT of the abdomen and pelvis was ordered and patient was found to have cirrhosis, BPH, COPD and interstitial lung disease without any acute concerns. Of note is that during his hospitalization patient did sustain a mechanical fall and was imaged with the CT of the brain without any abnormalities. His insulin regimen Being adjusted however on the day of discharge the patient still had suboptimal control but was adamant to leave. He did verbalize that he did have good follow-up as outpatient and he felt that if he stopped using the dapsone therapy his sugars will get better. He did not want to be discharged and endocrinology also felt that further control of his diabetes could be done as outpatient. He was therefore discharged with home health to help with diabetic education and nursing communication with his primary care doctor to help optimize him. . Home Meds Active Scripts Insulin Glargine,Hum.rec.anlog (Basaglar Kwikpen U-100) 100 Unit/1 Ml Insuln.pen, 42 UNIT SC BID, #26 EA Prov:TREY MILLSQUINTEN Carter. 07/17/18 Linagliptin (TRADJENTA) 5 Mg Tablet, 5 MG PO DAILY, #30 TAB 2 Refills Prov:TREY MILLSQUINTEN Seay 07/17/18 Metoprolol Succinate* (Toprol XL*) 50 Mg Tab.er.24h, 50 MG PO DAILY, #30 TAB 2 Refills Prov:TREY MILLSQUINTEN Carter. 07/17/18 Reported Medications Ergocalciferol (Vitamin D2) (VITAMIN D2) 50,000 Unit Capsule, 61765 UNIT PO ONCE A WEEK, CAP PT NOT SURE WHICH DAY 07/13/18 Exenatide Microspheres (Bydureon Pen) 2 Mg/0.65 Ml Pen.injctr, 2 MG SQ Q7D, EACH PT NOT SURE WHICH DAY 07/13/18 Insulin Aspart* (Novolog Insulin Pen*) 100 Unit/Ml Soln, 40 UNIT SC WITH MEALS, EA 07/13/18 Furosemide* (Furosemide*) 40 Mg/5 Ml Solution, 40 MG PO DAILY, #150 ML 07/13/18 Ezetimibe* (Zetia*) 10 Mg Tablet, 10 MG PO HS, TAB 07/13/18 Olmesartan Medoxomil (Benicar) 20 Mg Tablet, 20 MG PO DAILY, #30 TAB 07/13/18 Metformin Hcl* (Metformin Hcl*) 1,000 Mg Tablet, 1000 MG PO WITH BREAKFAST DINNE, #60 TAB 07/13/18 Nitroglycerin* (Nitrostat*) 0.4 Mg Tab.subl, 0.4 MG SL Q5MIN PRN for CHEST PAIN, BOTTLE 07/13/18 Cetirizine Hcl* (Cetirizine Hcl*) 10 Mg Tablet, 10 MG PO DAILY, #30 TAB 07/13/18 Dapsone* (Dapsone*) 25 Mg Tablet, 25 MG PO BID, #60 TAB STOP IF BLOOD SUGAR IS OVER 200 07/13/18 Omeprazole* (Omeprazole*) 40 Mg Capsule.dr, 40 MG PO DAILY, #30 CAP 07/13/18 Fluticasone/Vilanterol (Breo Ellipta 200-25 Mcg INH) 1 Each Blst.w.dev, 1 PUFF INHALATION DAILY, #1 INHALER 07/13/18 Selby-3 Acid Ethyl Esters (Lovaza) 1 Gm Capsule, 2 GM PO BID, CAP 07/13/18 Rosuvastatin Calcium* (Crestor*) 10 Mg Tablet, 10 MG PO QHS, #30 TAB 07/13/18 Albuterol Sulfate* (Ventolin HFA*) 18 Gm Hfa.aer.ad, 2 PUFF INHALATION Q4H, #1 INHALER 07/13/18 Pregabalin* (Lyrica*) 100 Mg Capsule, 100 MG PO TID, CAP 07/13/18 Zolpidem Tartrate* (Zolpidem Tartrate*) 10 Mg Tablet, 10 MG PO QHS PRN for INSOMNIA, #30 TAB 07/13/18 Discontinued Reported Medications Carvedilol* (Carvedilol*) 6.25 Mg Tablet, 6.25 MG PO BID, #60 TAB 07/13/18 Amlodipine Besylate* (Norvasc*) 5 Mg Tablet, 5 MG PO DAILY, TAB 07/13/18 Albuterol Sulfate* (Proair HFA*) 8.5 Gm Hfa.aer.ad, 2 PUFF INH Q4-6 HOURS PRN for WHEEZING AND SOB, INH 11/16/14 Potassium Chloride* (Klor-Con*) 10 Meq Tabsr, 10 MEQ PO DAILY W/ FOOD, TAB.SA 11/16/14 Omeprazole* (Omeprazole*) 20 Mg Capsule.dr, 20 MG PO DAILY, CAP 11/16/14 Hydrocodone Bit-Acetaminophen* ([place]*) 5-325 Mg Tab, 1 TAB PO Q6 PRN for PAIN, TAB 11/16/14 Nitroglycerin* (Nitrostat*) 0.4 Mg Tab.subl, 0.4 MG SL Q5MIN PRN for CHEST PAIN, BOTTLE 11/16/14 Gabapentin* (Neurontin*) 300 Mg Capsule, 300 MG PO TID, CAP 11/16/14 Loratadine* (Loratadine*) 10 Mg Tablet, 10 MG PO DAILY, TAB 11/16/14 Hydrocortisone* Topical (Hydrocortisone* Topical) 2.5%-20 Gm Cream..g., 1 APPLIC TOP BID, TUB 11/16/14 Docusate Sodium* (Docusate Sodium*) 100 Mg Capsule, 200 MG PO QHS PRN for CONSTIPATION, CAP 11/16/14 Calcium Carbonate-Vitamin D3 (Calcium 500 + D Tablet) 1 Each Tablet, 1 TAB PO BID, TAB 11/16/14 Benazepril Hcl* (Benazepril Hcl*) 20 Mg Tablet, 20 MG PO DAILY, TAB 11/16/14 Discontinued Scripts Selby-3/Dha/Epa/Fish Oil (FISH OIL EC 1,000 MG SOFTGEL) 1 Each Capsule.dr, 1000 MG PO BID for 30 Days Prov:MIGUEL PARDO V. CANNERY TENDER ENGINEER 11/19/15 Metformin Hcl (Glucophage) 500 Mg Tablet, 500 MG PO AC BREAKFAST DINNER for 30 Days, TAB Prov:MIGUEL PARDO V. CANNERY TENDER ENGINEER 11/19/15 Furosemide* (Furosemide*) 40 Mg Tablet, 40 MG PO DAILY@06 for 30 Days, TAB Prov:YVES PARDOA V. CANNERY TENDER ENGINEER 11/19/15 Insulin Aspart* (Novolog Insulin Pen*) 100 Unit/Ml Soln, 34 UNIT SC WITH MEALS for 30 Days Prov:PARDO,MIGUEL V. CANNERY TENDER ENGINEER 11/19/15 Insulin Glargine* (Lantus*) 100 Unit/Ml Soln, 55 UNIT SC Q12 for 30 Days Prov:PARDO,MIGUEL V. CANNERY TENDER ENGINEER 11/19/15 Metoprolol Succinate* (Toprol XL*) 50 Mg Tab.er.24h, 50 MG PO BID for 30 Days Prov:PARDO,MIGUEL V. CANNERY TENDER ENGINEER 11/19/15 Aspirin* (Aspirin* EC) 81 Mg Tablet.dr, 81 MG PO DAILY for 30 Days, TAB Prov:PARDO,MIGUEL V. CANNERY TENDER ENGINEER 11/19/15 Follow-up Plan Your diabetes is still not very well controlled. Please make sure you follow-up with the medical imaging technologist. The doctor who saw you when you were here is Dr. Hanson. His office information is as below. Please call to make a follow-up appointment, otherwise have your primary care doctor refer you to an medical imaging technologist. It is important that you maintain a diabetic diet and try to stay away from processed sugar. Diabetes is a very debilitating disease, but it is manageable if able to control your sugars. Please stay in close touch with your primary care doctor as well as your medical imaging technologist. I have also arranged for home health for a nurse to come and help you with your diabetic management at home. Name, Degree : Harsha Hanson MD Specialty: Endocrinology Office Address : [address] [place] [address] Office Office Primary Care Provider [facility] Pending Labs Laboratory Tests Test 07/17/18 02:22 07/17/18 08:07 07/17/18 12:09 Bedside Glucose 279 mg/dL (70-220) 273 mg/dL (70-220) 358 mg/dL (70-220) CB MILLS July 17, 2018 23:58
== END 2018-07-17 14:45 | disposition home health service (06) | DRG 292 ==
LOC: E/R 06:29 → OBSVTOIN 07:59 → TEL 07:59 → 2NE 07-16 21:40
PROVIDERS: ADMIT Family Medicine; ATTEND Family Medicine
DX: I11.0 Hypertensive heart disease with heart failure (principal); J44.1 Chronic obstructive pulmonary disease with (acute) exacerbation; N17.9 Acute kidney failure, unspecified; I50.23 Acute on chronic systolic (congestive) heart failure; I48.91 Unspecified atrial fibrillation; E87.5 Hyperkalemia; I25.10 Atherosclerotic heart disease of native coronary artery without angina pectoris; E66.9 Obesity, unspecified; Z68.38 Body mass index [BMI] 38.0-38.9, adult; E78.5 Hyperlipidemia, unspecified; M19.90 Unspecified osteoarthritis, unspecified site; G47.33 Obstructive sleep apnea (adult) (pediatric); Z95.5 Presence of coronary angioplasty implant and graft; R07.9 Chest pain, unspecified; I25.2 Old myocardial infarction; Z87.891 Personal history of nicotine dependence; R00.2 Palpitations; E11.65 Type 2 diabetes mellitus with hyperglycemia; K74.60 Unspecified cirrhosis of liver; I42.9 Cardiomyopathy, unspecified
CPT/HCPCS: 36415; 36600; 70450; 71045; 74176; 76775; 80048; 80053; 80061; 81001; 82550; 82553; 82803; 82962; 83036; 83540; 83735; 83880; 84100; 84484; 85025; 85610; 85730; 93005; 93306; 93880; 94644; J1650; J1815; J1940; J2405; Q9967